=== PATIENT | female | born 1945 | race Caucasian/White ===

== ENCOUNTER 2019-08-04 14:44 | Outpatient (CLI) | payer MEDICARE, BC, SELFPAY ==
--- NOTE | ~2019-08-04 | CT_ITS ---
EXAMINATION:CT lung screening DATE: 08/04/2019 15:28 INDICATION: Personal history of tobacco dependence. Current smoker with 50 pack year history. TECHNIQUE: Computed tomography (CT) of the chest was performed without intravenous contrast. Automate d exposure control and iterative reconstruction technique were employed. The dose-length product (DLP ) was 61.27 mGy-cm. COMPARISON: CT abdomen and pelvis 09/02/2009 FINDINGS: There is mild scarring at the lung apices. There is mild atelectasis bilaterally. Calcified bilateral lung nodules and calcified left hilar and mediastinal lymph nodes are consistent with old granulomatous disease. There are a few scattered nodules measuring up to 3 mm in left upper lobe. No pleural effusion. The heart size is normal. There are coronary artery calcifications. No pericardial effusion. There is mild thoracic spondylosis. IMPRESSION: 1. Lung-RADS category 2: Benign appearance or behavior. Continue annual screening with noncontrast lo w-dose chest CT in 12 months. Reviewed, dictated and finalized at location A. IMPRESSION: 1. Lung-RADS category 2: Benign appearance or behavior. Continue annual screeni ng with noncontrast low-dose chest CT in 12 months.
--- NOTE | ~2019-08-04 | MM_ITS ---
EXAMINATION: MM screening rosa BI w viola HISTORY: Screening mammogram TECHNIQUE: Craniocaudal and mediolateral oblique 3-D tomosynthesis images were obtained and synthetic 2-D images were generated. CAD analysis was submitted and interpreted. COMPARISON: 02/08/2011, 01/06/2010 bilateral digital screening mammogram examinations BREAST PARENCHYMAL COMPOSITION: There are scattered areas of fibroglandular density. FINDINGS: There is a biopsy marker on the right; history of prior benign right stereotactic breast bi opsy. Limited bilateral benign breast calcification. There is no evidence of suspicious mass, calcifi cation, or architectural distortion to suggest malignancy in either breast. There has been no suspici ous interval change. IMPRESSION: 1. No mammographic evidence of malignancy. 2. Recommend routine screening mammography in one year. BI-RADS Category 2: Benign finding(s). Reviewed, dictated and finalized at location A.
== END 2019-08-04 14:45 | disposition home or self-care (01) ==
PROVIDERS: PCP Family Medicine; Visit Provider Family Medicine
DX: Z12.31 Encounter for screening mammogram for malignant neoplasm of breast (principal); Z12.2 Encounter for screening for malignant neoplasm of respiratory organs; Z87.891 Personal history of nicotine dependence
CPT/HCPCS: 77063; 77067; G0297

== ENCOUNTER 2020-08-17 18:20 | Inpatient (IN) | payer MEDICARE, BC, SELFPAY ==
[2020-08-17] VITALS (7 sets, daily range): BP systolic 129–194; BP diastolic 57–79; PULSE 61–103; RESP 11–16; O2SAT 94–97
--- NOTE | ~2020-08-17 | CT_ITS ---
EXAMINATION: CTA brain carotid EXAM DATE: 08/17/2020 21:01 INDICATION: Stroke. TECHNIQUE: Spiral CTA of the carotid arteries was performed with intravenous injection 100 cc of Om nipaque 350. Axial, coronal, sagittal reformatted images reviewed. Additional reformatted images cre ated on dedicated 3-D workstation. NASCET comparable standard used to assess the degree of arterial stenosis. Spiral CT angiogram cerebral arteries performed with the same intravenous injection of con trast. Source images of the brain CTA transferred to dedicated workstation for 3-D rotational image c reation. Coronal, sagittal maximum intensity pixel images also reviewed. The dose-length product (D LP) for this examination was 811.76 mGy-cm. The exposure was tailored according to patient size, an d iterative reconstruction (ASIR) was used as additional dose reduction technique. Correlation is mad e to noncontrast head CT 08/17/2020. FINDINGS: There are 2 tandem regions of moderate stenosis of the left subclavian artery, the one at t he origin 55% stenosis, and the stenosis proximal to vertebral artery takeoff 60% stenosis. There is mild bilateral carotid bulb plaque with 0% stenosis bilaterally. The right vertebral artery is domina nt with moderate to severe stenosis at the origin. Scattered left vertebral artery arterial sclerosis with left vertebral artery origin occlusion. Mild carotid siphon arterial sclerosis without stenosis . There are bilateral posterior communicating artery dominant posterior cerebral arteries. There is no carotid or vertebral basilar arterial dissection or fibromuscular dysplasia. There are no cerebral artery aneurysms. There is symmetric cerebral artery arborization. The sagittal, transverse and sigm oid sinuses enhance normally, no venous sinus thrombosis. Internal cerebral veins also enhance normal ly. Small to moderate-sized left cerebellar infarction, a portion of the anterior superior cerebellar art efrain distribution. Incidental Findings: Mild microangiopathy. Moderate to severe cervical spondylosis. IMPRESSION: 1. Acute small to moderate-sized left cerebellar infarction. 2. Bilateral carotid bulb 0% stenosis. 3. Tandem left subclavian artery moderate stenoses between origin and vertebral. 4. Scattered arteriosclerosis as above. Reviewed, dictated and finalized at location B. IMPRESSION: 1. Acute small to moderate-sized left cerebellar infarction. 2. Bilateral carotid bulb 0% stenosis. 3. Tandem left subclavian artery moderate stenoses between origin and vertebra l. 4. Scattered arteriosclerosis as above.
--- NOTE | ~2020-08-17 | CT_ITS ---
EXAMINATION: CT brain wo con DATE: 08/17/2020 18:39 INDICATION: Left sided numbness. Headache. TECHNIQUE: Computed tomography (CT) of the head was performed without intravenous contrast. The mA wa s adjusted according to patient size. Iterative reconstruction technique was employed. Exam dose: 60 5.33 mGy-cm total exam DLP. COMPARISON: April 16, 2009 MRI brain FINDINGS: There is interval diminished attenuation along the anterosuperior aspect of the left cerebe llum consistent with recent or subacute infarct. Chronic left basal ganglia lacunar infarct. There is patchy nonspecific diminished attenuation of the subcortical and periventricular cerebral wh ite matter, likely due to chronic small vessel ischemic changes. Bilateral carotid siphon internal carotid artery calcifications are noted. Minimal bilateral basal ganglia calcifications. No intracranial mass lesion or hemorrhage, midline shift or mass effect effect is noted. No subdural or epidural hematoma. The mastoid air cells and included paranasal sinuses are normally developed and aerated. No fracture or bone destruction of the cranial vault. IMPRESSION: Recent or subacute anterosuperior left cerebellar infarct No intracranial hemorrhage Dr. Gipson telephoned the report on 08/17/2020 at 1846 hours to emergency room physician Dr. Reyes Reviewed, dictated and finalized at Location A. Reviewed, dictated and finalized at location A. IMPRESSION: Recent or subacute anterosuperior left cerebellar infarct No intracranial hemorrhage Dr. Gipson telephoned the report on 08/17/2020 at 1846 hours to emergency room marj Reyes
--- NOTE | ~2020-08-17 | XR_ITS ---
XR chest 1V DATE: 08/17/2020 18:42 INDICATION: Left-sided numbness. Weakness. TECHNIQUE: AP chest COMPARISON: 03/22/2011 two-view chest 08/04/2019 CT lung screening FINDINGS: Mild discoid atelectasis or scarring in the left lower lobe and to a lesser extent right shantel ng base. Moderate hyperinflation of the lungs. No pulmonary consolidation is noted. No pleural effusion or pul monary vascular congestion or pneumothorax. Borderline heart size. Aortic calcification. Diffuse osteopenia. IMPRESSION: Discoid atelectasis or scarring in the lower lung zones, left greater than right Moderate bilateral hyperinflation Borderline heart size Aortic calcification Diffuse osteopenia Reviewed, dictated and finalized at location A. IMPRESSION: Discoid atelectasis or scarring in the lower lung zones, left great er than right Moderate bilateral hyperinflation Borderline heart size Aortic calcification Diffuse osteopenia
--- NOTE | ~2020-08-17 | CT_ITS ---
EXAMINATION: CT brain wo con EXAM DATE: 08/19/2020 14:27 INDICATION: Recent stroke, follow-up. TECHNIQUE: Spiral CT of the head was performed without contrast. Axial, coronal and sagittal images were reviewed. The dose-length product (DLP) for this examination was 605.33 mGy-cm. The exposure w as tailored according to patient size, and iterative reconstruction (ASIR) was used as additional dos e reduction technique. Correlation is made to brain MR from 08/18/2020. Compared to head CT from 2015 FINDINGS: Small amount of heterogeneous density in region of previously seen small to moderate-sized left cerebellar acute infarction, corresponding to the hemosiderin deposit/petechial hemorrhagic conv ersion described stable correlating to yesterday's MRI brain (finding is new compared to initial pres enting head CT). There is no masslike appearance from focal hematoma or associated vasogenic edema. N o other regions of acute infarction. Moderate microangiopathy in mild cerebral atrophy. Left choroida l fissure cyst. No extra-axial collections, brain mass or obstructive hydrocephalus. IMPRESSION: 1. Left cerebellar acute infarction with petechial hemorrhagic conversion, stable compared to yester day. No kary masslike hematoma. 2. Senescent changes. Reviewed, dictated and finalized at location B. IMPRESSION: 1. Left cerebellar acute infarction with petechial hemorrhagic conversion, sta ble compared to yesterday. No kary masslike hematoma. 2. Senescent changes.
--- NOTE | ~2020-08-17 | MR_ITS ---
EXAMINATION: MR brain/brain stem wo/w con EXAM DATE: 08/18/2020 15:49 INDICATION: Left cerebellar acute infarction. Postoperative tachycardia, hypotension. TECHNIQUE: Magnetic resonance imaging (MRI) of the brain/brain stem obtained without contrast. Sagit maris T1, axial diffusion, gradient echo (T2*), T1, T2, FLAIR sequences obtained. Patient was then inj ected with 9 cc intravenous Multihance contrast. Axial and coronal postcontrast T1 weighted sequences obtained. Comparison is made to prior examination from CTA 08/17/2020. FINDINGS: There is small to moderate-sized left cerebellar infarction, with heterogeneous signal inte nsity on the diffusion-weighted sequence within central portion, with mild drop on the gradient echo sequence, indicative of hemosiderin deposit, hemorrhagic conversion without masslike focal hematoma. Patient may be at risk for developing a focal hematoma in this region. Only minimal mass effect on th e 4th ventricle. No other regions of acute infarction. No brain mass, extra-axial collections or obstructive hydroceph alus. There is moderate microangiopathy in mild cerebral atrophy. 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 Bilateral cataract surgery. IMPRESSION: Small to moderate-sized acute left cerebellar infarction with some early petechial hemosi johana deposit, hemorrhagic conversion, without kary hematoma. I discussed this finding with Dr. Ortiz at 08/18/2020 16:33 CDT. Reviewed, dictated and finalized at location B. IMPRESSION: Small to moderate-sized acute left cerebellar infarction with some early petechial hemosiderin deposit, hemorrhagic conversion, without kary rohit nikky. I discussed this finding with Dr. Ortiz at 08/18/2020 16:33 CDT.
--- NOTE | 2020-08-17 18:25 | ECG_ITS ---
Measurements Intervals Rogers Rate: 69 P: 56 WV: 195 QRS: 16 QRSD: 162 T: 150 QT: 465 QTc: 499 Interpretive Statements SINUS RHYTHM LEFT BUNDLE BRANCH BLOCK ABNORMAL ECG Electronically Signed On 08-17-2020 19:40:41 CDT by Trev Quiroz D.O.
[2020-08-17 18:52] LABS: Glucose Point of Care 142 mg/dl (65-105)
[2020-08-17 19:02] LABS: Basophils Percent Auto 0.2 % (0.2-1.2); Hematocrit 43.1 % (37.0-47.0); Hemoglobin 14.7 g/dL (12.0-15.0); Immature Granulocyte Absolute 0.02 K/mm3 (0.00-0.031); Immature Granulocyte Percent A 0.3 % (0-0.5); Lymphocytes Absolute Auto 1.07 K/mm3 (0.9-3.2); Lymphocytes Percent Auto 16.3 % (18.3-44.2); Mean Corpuscular HGB Conc 34.1 g/dl (32-36); Mean Corpuscular Hemoglobin 31.4 pg (26-34); Mean Corpuscular Volume 92.1 fl (80-100); Mean Platelet Volume 9.6 fl (7.4-10.4); Monocytes Absolute Auto 0.2 K/mm3 (0.1-0.6); Monocytes Percent Auto 3.1 % (2.6-8.5); Neutrophils Absolute Auto 5.3 K/mm3 (1.3-6.7); Neutrophils Percent Auto 80.1 % (45.5-73.1); Platelet Count Result 234 k/mm3 (150-375); Red Blood Count 4.68 M/mm3 (4.2-5.4); Red Cell Distribution Width 12.3 % (11.5-14.5); White Blood Count 6.6 K/mm3 (4.5-10.0)
[2020-08-17] MEDS: MORPHINE SULFATE (*CRX) 4 MG/ML INJ IV PUSH (19:08)
[2020-08-17] MEDS: SODIUM CHLORIDE 0.9% IV 1,000 ML 125 ML IV CONT (19:08)
[2020-08-17 19:13] LABS: Anion Gap 9 mmol/L (8-16); Blood Urea Nitrogen 11 mg/dL (7-17); Calcium 9.8 mg/dL (8.4-10.2); Carbon Dioxide 27 mmol/L (22-30); Chloride 99 mmol/L (98-107); Estimated CRCL calculation 36 ml/min; Estimated Glomerular Filt Rate > 60; Glucose 135 mg/dL (65-105); INR 1.1; Partial Thromboplastin Time 26.9 SECONDS (22.3-36.8); Potassium 3.6 mmol/L (3.4-5.0); Prothrombin Time 14.3 Seconds (11.1-14.7); Sodium 135 mmol/L (137-145)
[2020-08-17 19:24] LABS: Troponin I < 0.012 ng/mL (0.000-0.034)
--- NOTE | 2020-08-17 19:51 | ED.NEUROSD ---
HPI - Neuro Symptoms/Deficit General Chief Complaint: Suspected CVA Stated Complaint: left side numbness 8 hours ago Time Seen by Provider: 08/17/20 18:41 Source: patient Mode of arrival: ambulatory Limitations: no limitations History of Present Illness HPI Narrative: 74-year-old with a history of hypertension, anxiety depression here with complaints of headache since this morning. Patient states that about 10:00 right side of her body was shaking violently which subsided on its own and then few hours later was on the left side. She thought it would go away however with her family's request she was brought to the ER. She presently states that she is weak on the left side. She denied any chest pain or shortness of breath. Onset (ago): hour(s) (7) Location: left leg History of same: Yes Severity: mild Quality: weak Relieving factors: none Exacerbating factors: none Context: gradual onset On Anticoagulants: No Associated symptoms: headaches Related Data Home Medications Medication Instructions Recorded Confirmed albuterol sulfate [ProAir HFA] INHALATION 08/17/20 amlodipine 08/17/20 budesonide-formoterol [Symbicort] INHALATION 08/17/20 bupropion HCl mg PO 08/17/20 carvedilol 08/17/20 clonidine HCl 08/17/20 lisinopril 08/17/20 sertraline mg 08/17/20 Allergies Allergy/AdvReac Type Severity Reaction Status Date / Time Sulfa (Sulfonamide AdvReac Unknown SEVERE N/V Verified 08/17/20 20:17 Antibiotics) Review of Systems Review of Systems: All systems reviewed & are unremarkable except as noted in HPI and below Constitutional: Constitutional: Reports no additional constitutional complaints Eyes: Eyes: Reports no additional eye complaints ENT: Reports system reviewed and no additional complaints, except as documented Cardiovascular: Cardiovascular: Reports no additional cardiovascular complaints Respiratory: Respiratory: Reports no additional respiratory complaints Gastrointestinal: Gastrointestinal: Reports no additional gastrointestinal complaints Musculoskeletal: Musculoskeletal: Reports no additional musculoskeletal complaints Neurologic: Reports as per HPI Psychiatric: Psychiatric: Reports no additional psychiatric complaints Exam Narrative: Exam Narrative: GENERAL: Well-appearing, well-nourished, and in no acute distress. HEAD: Normocephalic, atraumatic. EYES: PERRLA and EOMI. ENT: Nares clear, no rhinorrhea or epistaxis. Mucous membranes moist. No facial droop NECK: Supple. CHEST: Clear to auscultation. No respiratory distress. HEART: Regular rate and rhythm. No murmur heard. Normal peripheral pulses. ABDOMEN: Soft, nontender, nondistended, normal active bowel sounds. EXTREMITIES: Normal range of motion. No edema. SKIN: Warm, dry, no rash. NEURO: No focal deficits. Alert and oriented x3. PSYCH: Normal mood and affect. Course Course Emergency Course: Patient comfortably lying on the stretcher in no discomfort informed her about her lab work, CT findings will admit to the hospital for further stroke work-up. Discussed with Dr. Amaya will consult the patient. Vital Signs Vital signs: Vital Signs Pulse Rate 70 08/17/20 18:42 Respiratory Rate 16 08/17/20 18:42 Blood Pressure 163/79 H 08/17/20 18:42 Pulse Oximetry 97 08/17/20 18:42 Pulse Rate 72 08/17/20 20:07 Respiratory Rate 14 08/17/20 20:07 Blood Pressure 177/73 H 08/17/20 20:07 Pulse Oximetry 97 08/17/20 20:07 MDM - Neuro Symptoms/Deficit Lab Data Result diagrams: 08/17/20 18:54 08/17/20 18:54 Labs: Lab Results 08/17/20 08/17/20 08/17/20 Range/Units 18:50 18:54 18:54 WBC 6.6 (4.5-10.0) K/mm3 RBC 4.68 (4.2-5.4) M/mm3 Hgb 14.7 (12.0-15.0) g/dL Hct 43.1 (37.0-47.0) % MCV 92.1 (80-100) fl MCH 31.4 (26-34) pg MCHC 34.1 (32-36) g/dl RDW 12.3 (11.5-14.5) % Plt Count 234 (150-375) k/mm3 MPV 9.6 (7.4-10.4) fl
--- NOTE | 2020-08-17 20:14 | PC.NURSE ---
Fluids Bolused in. Ok per Dr Ballard
[2020-08-17] MEDS: ASPIRIN 81 MG CHEWABLE TABLET 324 MG PO (20:24)
[2020-08-17] MEDS: LABETALOL HCL INJ 100 MG/20 ML VIAL 10 MG IV PUSH (20:25)
--- NOTE | 2020-08-17 21:35 | ADMGEN ---
This patient, Margy Marin, was admitted to Medical Room 349-01. Patient/family oriented to hospital policies and general routines including ID bracelet, bed and alarms, visiting hours, pain management, procedures, bathroom and other care routines, personal items, smoking policy, room service/diet, and visiting hours. Information on how to activate the Rapid Response Team has been discussed. Patient/Family are encouraged to report perceived risks to care and to ask questions if they do not understand what they are told or what they should do.
[2020-08-18] VITALS (13 sets, daily range): BP systolic 126–190; BP diastolic 68–90; PULSE 44–61; RESP 16–18; TEMP 35.9–36.6; O2SAT 96–100; BMI 19.3
--- NOTE | 2020-08-18 | ECHO_ITS ---
Patient Info Name: Margy Marin Age: 74 years : 1945 Gender: Female Ht: 61 in Wt: 100 lbs BSA: 1.39 m2 HR: 57 bpm BP: 154 / 76 mmHg Heart Rhythm: Sinus Rhythm Technical Quality: Good Exam Date: 08/18/2020 2:09 PM Exam Location: [facility] Patient Status: Inpatient Admit Date: 08/17/2020 Staff Ordering Physician: Richard Reyes MD Boat Driver: Chris Talavera RDCS, RT Attending Provider: Mary Edgar DO Exam Type: CA echo doppler w bubble study Study Info Indications I63.239 - Cerebral infarction due to unspecified occlusion or stenosis of unspecified carotid arteries Complete two-dimensional, color flow and Doppler transthoracic echocardiogram is performed. Strain analysis performed. Summary 1. Complete two-dimensional, color flow and Doppler transthoracic echocardiogram is performed. 2. Normal left ventricular size with moderate concentric hypertrophy. Left ventricular systolic function with the ejection fraction is 65-70%. No focal wall motion abnormalities. Global longitudinal strain was normal at-18%. Diastolic dysfunction grade 1 was present. 3. There is mild tricuspid valve regurgitation. 4. Mild pulmonary hypertension, estimated pulmonary arterial systolic pressure is 41 mmHg. 5. No evidence of intracardiac shunting by color flow and by bubble study during normal respiration and Valsalva maneuver. 6. Normal sinus rhythm. Left Ventricle Left ventricular chamber dimension is normal. Left ventricular systolic function is normal, estimated at 65-70%. There is moderately increased left ventricular wall thickness. Left ventricular septal wall motion is abnormal with septal motion related to bundle branch block. The left ventricular diastolic function is grade I diastolic dysfunction. Global longitudinal strain is normal at -18 %. Right Ventricle Right ventricular chamber dimension is normal. Right ventricular systolic function is normal. Left Atria Left atrial chamber dimension is normal. Right Atria Right atrial chamber dimension is normal. Atrial Septum Intact interatrial septum visualized by color flow, Doppler and agitated saline imaging. Aortic Valve The aortic valve is trileaflet. There is no aortic valve sclerosis. There is no aortic valve stenosis. There is no aortic valve regurgitation. Pulmonic Valve The pulmonic valve is normal. There is no pulmonic valve stenosis. There is no pulmonic regurgitation. Mitral Valve The mitral valve has normal leaflets. There is no mitral valve stenosis. There is trace mitral valve regurgitation. Tricuspid Valve The tricuspid valve leaflets are normal. There is no significant tricuspid valve stenosis. There is mild tricuspid valve regurgitation. Mild pulmonary hypertension, estimated pulmonary arterial systolic pressure is 41 mmHg. Pericardium/Pleural The pericardium appears normal. There is no pericardial effusion. Inferior Vena Cava Normal inferior vena cava with >50% collapse upon inspiration consistent with Empty right atrial pressure, 10 mmHg. Aorta The aortic root size at the sinus of Valsalva is normal. The prox ascending aorta size is normal. Left Ventricular Outflow Tract Name Value Normal LVOT 2D
[2020-08-18 00:01] LABS: Troponin I < 0.012 ng/mL (0.000-0.034)
[2020-08-18] MEDS: ACETAMINOPHEN 325 MG TABLET 650 MG PO ×2 (02:17→06:19)
[2020-08-18 03:07] LABS: Troponin I 0.014 ng/mL (0.000-0.034)
[2020-08-18] MEDS: SERTRALINE HCL 50 MG TABLET 100 MG PO ×2 (09:09→20:08)
[2020-08-18] MEDS: buPROPion HCL XL (24 HR) 150 MG TABCR PO (09:09)
[2020-08-18] MEDS: ASPIRIN 325 MG TABLET PO (09:09)
[2020-08-18] MEDS: amLODIPine BESYLATE 5 MG TABLET PO (09:10)
[2020-08-18] MEDS: lisinopriL 20 MG TABLET 40 MG PO (09:10)
[2020-08-18] MEDS: ATORVASTATIN 10 MG TABLET PO (09:10)
[2020-08-18] MEDS: carvediloL 6.25 MG TABLET PO ×2 (09:10→17:13)
--- NOTE | 2020-08-18 10:50 | WPDNEURCNPN ---
Assessment and Plan Assessment and plan (1) Acute CVA (cerebrovascular accident): Code(s): I63.9 - Cerebral infarction, unspecified Status: Acute (2) Anxiety: Code(s): F41.9 - Anxiety disorder, unspecified Status: Acute (3) HTN (hypertension), benign: Code(s): I10 - Essential (primary) hypertension Status: Acute Additional Plan Left cerebellar stroke documented by the CTA in addition to the left subclavian artery moderate stenosis between origin and the vertebral artery raising the possibility of subclavian steal will discuss with the patient further Consult date: 08/18/20 Time Seen: 10:30 HPI: Margy Marin is a 74 year old female[facility] for complaints of left-sided numbness of 8 hours duration in addition to the ongoing history of 1. Hypertension 2. Anxiety with depression 3. Headaches. She reported that at about 10:00 a.m. the right side of her body was shaking violently and then subsided on its own and then few hours later it was happening on the left side. As per the family request she came to the hospital initial evaluation in the emergency room revealed her to have mildly abnormal UA otherwise normal chemistry and CBC CTA documented acute small moderate size left cerebellar infarct in addition to bilateral carotid bulbs 0% stenosis and tandem left subclavian artery moderate stenosis between origin and vertebral CT of the lungs revealed her to have benign appearance so as the mammogram screening Review of Systems Review of Systems: All systems reviewed & are unremarkable except as noted in HPI and below PMFSH Family History Family History Father Acute myocardial infarction Hypertension Congestive heart failure Sibling Acute myocardial infarction Congestive heart failure Mother Stomach cancer Unknown Diabetes mellitus Social History Social History Years smoked: 30 Smoking status: Current every day smoker Tobacco type: cigarettes Second hand tobacco smoke exposure: Yes Alcohol intake: never Substance use: current Substance use type: marijuana Last use: couple weeks ago Gender identity (if verbalized by the patient): Female Spiritual care concerns: No Meds Home Medications and Allergies Home Medications Medication Instructions Recorded Confirmed Type amlodipine 5 mg PO DAILY 08/17/20 08/17/20 History atorvastatin 10 mg PO DAILY 08/17/20 08/17/20 History budesonide-formoterol [Symbicort] 2 puff INHALATION QID PRN 08/17/20 08/17/20 History bupropion HCl 150 mg PO DAILY 08/17/20 08/17/20 History carvedilol 6.25 mg PO BID 08/17/20 08/17/20 History clonidine HCl 0.2 mg PO HS 08/17/20 08/17/20 History lisinopril 40 mg PO DAILY 08/17/20 08/17/20 History oxybutynin chloride 5 mg PO DAILY 08/17/20 08/17/20 History sertraline 100 mg PO BID 08/17/20 08/17/20 History Allergies Allergy/AdvReac Type Severity Reaction Status Date / Time Sulfa (Sulfonamide AdvReac Unknown SEVERE N/V Verified 08/17/20 21:49 Antibiotics) Vital Signs Vital Signs - 24 hr 08/17/20 18:42 08/17/20 19:09 08/17/20 20:07 Temperature Pulse Rate 63 66 72 Respiratory Rate 12 11 L 14 Blood Pressure 163/79 H 141/75 H 177/73 H Pulse Oximetry 95 94 97 08/17/20 20:16 08/17/20 20:32 08/17/20 21:32 Temperature Pulse Rate 103 H 61 Respiratory Rate 15 14 Blood Pressure 194/74 H 168/71 H 129/57 L Pulse Oximetry 94 94 08/17/20 22:35 08/18/20 00:00 08/18/20 04:00 Temperature 36.6 C Pulse Rate 60 44 L Respiratory Rate 16 Blood Pressure 126/68 Pulse Oximetry 95 100 08/18/20 06:33 08/18/20 08:00 08/18/20 09:10 Temperature 36.2 C L Pulse Rate 53 L 57 L 59 L Respiratory Rate 18 Blood Pressure 154/76 H Pulse Oximetry 100 08/18/20 09:23 Temperature 35.9 C L Pulse Rate 51 L R
--- NOTE | 2020-08-18 15:11 | PC.NURSE ---
On 08/18/20, the student, [Livan Covington], provided care and completed [facility] documentation on this patient. I have reviewed the student's documentation and agree with the findings.
--- NOTE | 2020-08-18 15:16 | PC.NURSE ---
On 08/18/20, the student, [Livan Covington], provided care and completed [facility] documentation on this patient. I have reviewed the student's documentation and agree with the findings.
--- NOTE | 2020-08-18 15:20 | PC.NURSE ---
Patient taken by wheelchair to MRI.
--- NOTE | 2020-08-18 15:53 | PC.NURSE ---
Patient back from MRI, resting in bed. Call light is within reach.
--- NOTE | 2020-08-18 17:02 | PM.IMPN ---
Progress Note: A&P Assessment and Plan (1) Acute CVA (cerebrovascular accident): Code(s): I63.9 - Cerebral infarction, unspecified Status: Acute Assessment and Plan: MRI is ABNL -Small to moderate-sized acute left cerebellar infarction with some early petechial hemosiderin deposit, hemorrhagic conversion, without kary hematoma. Neurology consulted and has seen patient earlier ECHO awaiting Stop ASA and any blood thinners (2) Anxiety: Code(s): F41.9 - Anxiety disorder, unspecified Status: Chronic Assessment and Plan: Continue anxiety medications (3) HTN (hypertension), benign: Code(s): I10 - Essential (primary) hypertension Status: Chronic Assessment and Plan: Continue BP medications Subjective Date/time seen: 08/18/20 17:02 Interval history: 74 [facility] complaints of left-sided numbness of [address] head shows - Recent or subacute anterosuperior left cerebellar infarct. No intracranial hemorrhage. cta shows - Acute small to moderate-sized left cerebellar infarction. mri head just reported patient informed of petechial hemosiderin deposit. Review of Systems Review of Systems: All systems reviewed & are unremarkable except as noted in HPI and below Exam Const: General: cooperative and healthy appearing; No in distress Nutritional Appearance: overweight Orientation/consciousness: oriented to person HENMT: Head: normal to inspection Resp: Effort & Inspection: no respiratory distress Auscultation: no rhonchi and no wheezes Cardio: Rate: regular rate Rhythm: regular rhythm GI: Inspection: normal to inspection GI Palp: No abdominal tenderness, No Guarding due to palpation present (GI) and No Hepatomegaly present Auscultation: normal bowel sounds Neuro: General: oriented to person Objective Data Vital Signs Vital Signs: Vital Signs - 24 hr 08/17/20 18:42 08/17/20 19:09 08/17/20 20:07 Temperature Pulse Rate 63 66 72 Respiratory Rate 12 11 L 14 Blood Pressure 163/79 H 141/75 H 177/73 H Pulse Oximetry 95 94 97 08/17/20 20:16 08/17/20 20:32 08/17/20 21:32 Temperature Pulse Rate 103 H 61 Respiratory Rate 15 14 Blood Pressure 194/74 H 168/71 H 129/57 L Pulse Oximetry 94 94 08/17/20 22:35 08/18/20 00:00 08/18/20 04:00 Temperature 36.6 C Pulse Rate 60 44 L Respiratory Rate 16 Blood Pressure 126/68 Pulse Oximetry 95 100 08/18/20 06:33 08/18/20 08:00 08/18/20 09:10 Temperature 36.2 C L Pulse Rate 53 L 57 L 59 L Respiratory Rate 18 Blood Pressure 154/76 H Pulse Oximetry 100 08/18/20 09:23 08/18/20 12:00 08/18/20 13:23 Temperature 35.9 C L 36.1 C L Pulse Rate 51 L 57 L 60 Respiratory Rate 18 18 Blood Pressure 170/75 H 147/80 H Pulse Oximetry 96 96 08/18/20 16:00 Temperature Pulse Rate 61 Respiratory Rate Blood Pressure Pulse Oximetry Intake/Output Intake/Output: Intake & Output 08/15/20 08/16/20 08/17/20 08/18/20 23:59 23:59 23:59 23:59 Intake Total 1240 780 Output Total 1100 Balance 1240 -320 Meds/Results Medications: Active Medications Generic Name Dose Route Start Last Admin Trade Name Freq PRN Reason Stop Dose Admin Acetaminophen 650 mg 08/17/20 20:27 08/18/20 06:19 Acetaminophen 325 Mg Tablet PO 650 mg Q4H PRN Administration Mild Pain (1-3) or Fever Amlodipine Besylate 5 mg 08/18/20 09:00 08/18/20 09:10 Amlodipine Besylate 5 Mg Tablet PO 5 mg DAILY MINA Administration Atorvastatin Calcium 10 mg 08/18/20 09:00 08/18/20 09:10 Atorvastatin 10 Mg Tablet PO 10 mg DAILY MINA Administration Budesonide/Formoterol Fumarate 2 puff 08/18/20 08:00 08/18/20 08:50 Budesonide/Form 160-4.5 Mcg (*Sp) INHALATION 2 puff Q12HRT MINA Administration Bupropion HCl 150 mg 08/18/20 09:00 08/18/20 09:09 Bupropion Hcl Xl (24 Hr) 150 Mg Tabc
--- NOTE | 2020-08-18 17:21 | PC.NURSE ---
Spoke to Dr. Lilly about the mri report, staff to closely monitor the patient. No aspirin or lovenox. Blood pressure 190/87. No new orders.
[2020-08-18] MEDS: cloNIDine HCL 0.2 MG TABLET PO (20:08)
[2020-08-19] VITALS (8 sets, daily range): BP systolic 114–136; BP diastolic 65–72; PULSE 52–62; RESP 16–20; TEMP 35.9–36.1; O2SAT 95–97
[2020-08-19] MEDS: carvediloL 6.25 MG TABLET PO (08:29)
[2020-08-19] MEDS: amLODIPine BESYLATE 5 MG TABLET PO (08:30)
[2020-08-19] MEDS: lisinopriL 20 MG TABLET 40 MG PO (08:30)
[2020-08-19] MEDS: SERTRALINE HCL 50 MG TABLET 100 MG PO (08:30)
[2020-08-19] MEDS: ATORVASTATIN 10 MG TABLET PO (08:30)
[2020-08-19] MEDS: buPROPion HCL XL (24 HR) 150 MG TABCR PO (08:30)
--- NOTE | 2020-08-19 12:02 | WPDNEUROPN ---
Progress Note: A&P Additional Plan left cerebellar stroke with left subclavian artery moderate stenosis between the origin and the vertebral on the left side raising the possibility of vertebral steal because the MRI show some hemorrhagic conversion at this stage she needs no plaque or anticoagulation simply rest [place] of physical therapy in addition to monitoring the blood pressure I will send the report for neurosurgical service at [facility] and arrange for vascular consult all the pros and cons of the diagnosis have been discussed with her Review of Systems Review of Systems: All systems reviewed & are unremarkable except as noted in HPI and below Exam Const: General: cooperative, comfortable, no acute distress, alert and awake Orientation/consciousness: oriented to person, oriented to place and oriented to time HENMT: Head: normal to inspection and normocephalic Ears: hearing grossly normal bilaterally General nose exam: Normal external nose present Face and sinus: normal facial exam Mouth: Yes Normal oral and palatal mucosa present Eyes: General: appearance normal, both eyes and all related structures Visual Ryan: normal visual ryan by confrontation Alignment and Position: alignment normal Periorbital: periorbital findings normal Eyelids: eyelids normal Conjunctivae: conjunctivae normal Sclera: sclerae normal Cornea: corneas normal EOM: EOMs intact bilaterally Neck: Neck: normal visual inspection and full ROM Resp: Effort & Inspection: normal respiratory effort Auscultation: clear to auscultation bilaterally Neuro: General: oriented to person, oriented to place and oriented to time Cranial nerves: Yes CN's II-XII intact bilaterally Cognition (Neuro): normal cognition Gait exam (Neuro): Ataxic gait present Motor exam (neuro): 5/5 motor strength present throughout, Pronator motor function not present, No tremor noted and Normal motor muscle tone present throughout Sensory Exam: normal sensation Deep tendon reflexes (DTR's): Right triceps reflex intensity grade: 1+, Left triceps reflex intensity grade: 1+, Rt Biceps (C5, C6): 1+, Left biceps reflex intensity grade: 1+, Right brachioradialis reflex intensity grade: 1+, Left brachioradialis reflex intensity grade: 1+, Right patellar reflex intensity grade: 1+, Left patellar reflex intensity grade: 1+, Right ankle reflex intensity grade: 1+ and Left ankle reflex intensity grade: 1+ Plantar Reflex Responses: downgoing: right and equivocal: left Extrem: General: normal to inspection Psych: Appearance: grossly normal Mental Status: mental status grossly normal Speech and movement: Normal speech and movement present Affect: normal affect Attitude: cooperative Thought process: Normal thought process present Insight: Good insight present (Psych) Judgement: Good judgement present (Psych) Objective Data Vital Signs Vital Signs: Vital Signs - 24 hr 08/18/20 13:23 08/18/20 16:00 08/18/20 17:13 Temperature 36.1 C L Pulse Rate 60 61 60 Respiratory Rate 18 Blood Pressure 147/80 H Pulse Oximetry 96 08/18/20 17:16 08/18/20 18:15 08/18/20 20:00 Temperature 36.1 C L 36.2 C L Pulse Rate 61 59 L 58 L Respiratory Rate 18 18 Blood Pressure 190/82 H 176/84 H 181/90 H Pulse Oximetry 100 97 08/19/20 00:00 08/19/20 04:00 08/19/20 06:06 Temperature 36.1 C L Pulse Rate 52 L 56 L 59 L Respiratory Rate 19 Blood Pressure 114/65 Pulse Oximetry 95 08/19/20 08:00 08/19/20 08:29 08/19/20 09:14 Temperature 35.9 C L Pulse Rate 58 L 62 56 L Respiratory Rate 20 Blood Pressure 122/72 Pulse Oximetry 96 Intake/Output Intake/Output: Intake & Output 08/16/20 08/17/20 08/18/20 08/19/20 23:59 23:59 23:59 23:59 Intake Total 1240 1320 500 Output Total 1100 1175 Balance 1240 220 -675 Meds/Results Medications: Active Medications Generic Name Dose Route Start Last Admin Trade Name Freq PRN Reason Stop Dose Admin Acetaminophen 650 mg
--- NOTE | 2020-08-19 14:04 | PM.DS ---
DS: Admitting Diagnosis Admitting Diagnosis Admitting Diagnosis: CVA DS: Discharge Diagnosis Discharge Diagnosis (1) Acute CVA (cerebrovascular accident): Code(s): I63.9 - Cerebral infarction, unspecified Status: Acute Assessment and Plan: MRI is ABNL -Small to moderate-sized acute left cerebellar infarction with some early petechial hemosiderin deposit, hemorrhagic conversion, without kary hematoma. 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 Pt had rpt CT brain prior to discharge which showed - 1. Left cerebellar acute infarction with petechial hemorrhagic conversion, stable compared to yesterday. No kary masslike hematoma. 2. Senescent changes. Pt is stable for discharge pt has mild weakness in left face, arm and leg but is independent with walking and moving. Stop ASA and any blood thinners (2) Anxiety: Code(s): F41.9 - Anxiety disorder, unspecified Status: Chronic Assessment and Plan: Continue anxiety medications (3) HTN (hypertension), benign: Code(s): I10 - Essential (primary) hypertension Status: Chronic Assessment and Plan: Continue BP medications DS: Summary Hospital Course Hospital Course: 74 year [facility] for complaints of left-sided numbness of [address] head shows - Recent or subacute anterosuperior left cerebellar infarct. No intracranial hemorrhage. cta shows - Acute small to moderate-sized left cerebellar infarction. mri head just reported patient informed of petechial hemosiderin deposit. Pt seen by neurology see his note, pt had rpt CT brain which is stable pt is good for discharge with neurology follow up. Time Spent with Patient Time attestation: Total time spent providing and/or coordinating discharge services:40 minutes Exam Const: General: cooperative and healthy appearing; No in distress Nutritional Appearance: overweight Orientation/consciousness: oriented to person HENMT: Head: normal to inspection Resp: Effort & Inspection: no respiratory distress Auscultation: no rhonchi and no wheezes Cardio: Rate: regular rate Rhythm: regular rhythm GI: Inspection: normal to inspection Auscultation: normal bowel sounds Neuro: General: oriented to person and other (mild weakness in left arm and leg and face ) Discharge Plan Discharge Attending physician on discharge: Felicity Ortiz Consulting providers: Jason Amaya Discharging Clinician: Felicity Ortiz Anticipated Discharge Date/Time: 08/19/20 17:00 Patient Disposition: Home, Self-Care Activity: as tolerated Diet: heart healthy Patient Instructions: Antibiotic Form, Aspirin (By mouth), How to Stop Smoking (DC), Pain Management (DC), Weakness (DC), Magnetic Resonance Imaging (DC), Stroke (DC) Stand Alone Forms: General Discharge Information Follow-up/Referrals: Jason Amaya MD [Physician] - (FOLLOW UP IN 1 weeks time ) Discharge Medications: Continued carvedilol 6.25 mg tablet 6.25 mg PO BID RF: 0 sertraline 100 mg tablet 100 mg PO BID RF: 0 amlodipine 5 mg tablet 5 mg PO DAILY RF: 0 clonidine HCl 0.2 mg tablet 0.2 mg PO HS RF: 0 lisinopril 40 mg tablet 40 mg PO DAILY RF: 0 bupropion HCl 150 mg tablet extended release 24 hr 150 mg PO DAILY RF: 0 budesonide-formoterol [Symbicort] 160-4.5 mcg/actuation HFA aerosol inhaler 2 puff INHALATION QID PRN (Reason: Shortness Of Breath Or Wheezing) RF: 0 atorvastatin 10 mg tablet 10 mg PO DAILY RF: 0 oxybutynin chloride 5 mg tablet extended release 24hr 5 mg PO DAILY RF: 0 Date of admission: 08/18/20 16:15 Primary Care Provider: Jed,[facility] Admitting Provider: Valentina
--- NOTE | 2020-08-19 14:34 | PC.NURSE ---
On 08/19/20, the student, [Livan Covington], provided care and completed [facility] documentation on this patient. I have reviewed the student's documentation and agree with the findings.
--- NOTE | 2020-08-19 19:44 | PM.IMHP ---
H&P: HPI History of Present Illness Date/Time: 08/18/20 06:00 late entry Chief Complaint: Headache Narrative: 74-year-old female with past medical history COPD, hypertension, depression and urge incontinence who presented to the ER with headache and left-sided numbness. The patient reported that around 10:00 a.m. the right side of her body started shaking violently and subsided a few minutes later. A few hours after that she developed left-sided numbness. When numbness did not go away her family convinced her to come to the ER. She was feeling weak on the left side when she came to the ER. She reports resolution of her headache prior to arriving in the ER. Her headache was moderate intensity when it occurred. It was in the left occipital region. She did not take any medications for headache. She had not noticed any difficulty swallowing or talking. She denied any dizziness or visual changes. CT performed in the ER demonstrated left acute cerebellar infarction. CT of the head and neck demonstrated small amount of moderate-sized left cerebellar infarction, tandem left subclavian artery moderate stenosis between the origin and vertebral. Review of Systems Review of Systems: Narrative: 12 systems were reviewed with pertinent positives and negatives per HPI. Except as documented in the HPI, all other systems were reviewed and are negative. [facility] Past Medical History Medical History (Updated 08/19/20 @ 20:19 by Mary Edgar DO) Anxiety and depression Carotid stenosis CHF (congestive heart failure) COPD (chronic obstructive pulmonary disease) Coronary artery disease Essential hypertension Gastric ulcer Hyperlipidemia Macular degeneration of left eye Migraines Urge urinary incontinence Surgical History Surgical History (Updated 08/19/20 @ 20:19 by Mary Edgar DO) H/O hysterectomy for benign disease History of bowel resection Due to small-bowel obstruction History of carotid endarterectomy Status post cataract extraction of both eyes with insertion of intraocular lens Status post right rotator cuff repair Family History Family History Father Acute myocardial infarction Hypertension Congestive heart failure Sibling Acute myocardial infarction Congestive heart failure Mother Stomach cancer Unknown Diabetes mellitus Social History Social History Years smoked: 30 Smoking status: Current every day smoker Tobacco type: cigarettes Second hand tobacco smoke exposure: Yes Alcohol intake: never Substance use: current Substance use type: marijuana Last use: couple weeks ago Gender identity (if verbalized by the patient): Female Spiritual care concerns: No Meds Home Medications and Allergies Home Medications Medication Instructions Recorded Confirmed Type amlodipine 5 mg PO DAILY 08/17/20 08/17/20 History atorvastatin 10 mg PO DAILY 08/17/20 08/17/20 History budesonide-formoterol [Symbicort] 2 puff INHALATION QID PRN 08/17/20 08/17/20 History bupropion HCl 150 mg PO DAILY 08/17/20 08/17/20 History carvedilol 6.25 mg PO BID 08/17/20 08/17/20 History clonidine HCl 0.2 mg PO HS 08/17/20 08/17/20 History lisinopril 40 mg PO DAILY 08/17/20 08/17/20 History oxybutynin chloride 5 mg PO DAILY 08/17/20 08/17/20 History sertraline 100 mg PO BID 08/17/20 08/17/20 History Allergies Allergy/AdvReac Type Severity Reaction Status Date / Time Sulfa (Sulfonamide AdvReac Unknown SEVERE N/V Verified 08/17/20 21:49 Antibiotics) Vital Signs Vital Signs - 24 hr 08/18/20 20:00 08/19/20 00:00 08/19/20 04:00 Temperature 97.1 F L Pulse Rate 58 L 52 L 56 L Respiratory Rate 18 Blood Pressure 181/90 H Pulse Oximetry 97 08/19/20 06:06 08/19/20 08:00 08/19/20 08:29 Temperature 97 F L Pulse Rate 59 L 58 L 62 Respiratory Rate 19 Blood Pressure 114/65 Pulse
== END 2020-08-19 15:35 | disposition home or self-care (01) | DRG 66 ==
LOC: ANHED 19:09 → ANH3MED 21:00
PROVIDERS: Admitting Provider Internal Medicine; Emergency Provider Family Medicine; PCP Family Medicine; Visit Provider Family Medicine
DX: I63.9 Cerebral infarction, unspecified (principal); E78.5 Hyperlipidemia, unspecified; R29.700 NIHSS score 0; I25.10 Atherosclerotic heart disease of native coronary artery without angina pectoris; I10 Essential (primary) hypertension; F41.8 Other specified anxiety disorders; J44.9 Chronic obstructive pulmonary disease, unspecified; F17.210 Nicotine dependence, cigarettes, uncomplicated; N39.41 Urge incontinence; Z79.899 Other long term (current) drug therapy; Z88.2 Allergy status to sulfonamides; Z98.42 Cataract extraction status, left eye; Z98.41 Cataract extraction status, right eye; Z96.1 Presence of intraocular lens
CPT/HCPCS: 36415; 70450; 70496; 70498; 70553; 71045; 80048; 82948; 84484; 85025; 85610; 85730; 93005; 93306; 94640; 96361; 96374; 96375; 97161; 97165; 99285; A9270; A9577; G0378; J2270; J7030; Q9967

== ENCOUNTER 2022-05-12 07:37 | Outpatient (CLI) | payer MEDICARE, BC, SELFPAY ==
--- NOTE | 2022-05-12 07:47 | ECG_ITS ---
Measurements Intervals [place] Rate: 89 P: 56 [place]: 179 QRS: 0 QRSD: 136 T: 156 QT: 410 QTc: 501 Interpretive Statements SINUS RHYTHM LEFT BUNDLE BRANCH BLOCK ABNORMAL ECG COMPARED TO ECG 08/17/2020 18:55:56 NO SIGNIFICANT CHANGES Electronically Signed On 05-12-2022 12:28:17 [employer] by Trev Quiroz D.O.
== END 2022-05-12 07:38 | disposition home or self-care (01) ==
PROVIDERS: PCP Nurse Practitioner Family; Visit Provider Nurse Practitioner Family
DX: R00.1 Bradycardia, unspecified (principal); I44.7 Left bundle-branch block, unspecified
CPT/HCPCS: 93005

== ENCOUNTER 2024-12-20 13:30 | Inpatient (IN) | payer MEDICARE, BC, SELFPAY ==
--- OUTSIDE RECORDS SUMMARY | 2009-10-14 05:45 | XMS_ITS | Continuity of Care Document ---
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 No Information 0 Feliceishnasjodee Jose. [address] [address], [place], [place], [facility], [place]. tel:[phone] Office/outpat ient Visit, [facility] [[email or web address]], [address] [place] [address] [address], [place], [place], [id number], tel:[phone] [place] [facility] No Information 0 Krishnasamy Jose. [address] [address], [place], [address], [place]. tel:[phone] Family History Family Member Type Diagnosis Age At Onset No Information Payers Payer name Insurance type Covered republican ID Authoriza tion(s) [place] [id number] Social History Type Description Quantity Date Captured Comments Sex Female Smoking Status No Information Chief Complaint And Reason For Visit No Information Reason For Referral Reason For Referral No Information History Of Present Illness Encounter Date Complaint History Of Prese nt Illness No Information Functional Status Date Functional Assessmen t No Information Instructions Date Instruction Additional Infor mation No Information Assessments Type Assessment Date No Information Patient Care Teams Name Effective Dates (start - stop) Status Members No Information
--- OUTSIDE RECORDS SUMMARY | 2015-08-19 04:30 | XMS_ITS | Continuity of Care Document ---
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 Name Role Phone Mitchell Starks MD, MD Unavailable Unavailable Procedures Procedure Date [facility] AFTER CATARACT LASER SURGERY AFTER CATARACT LASER SURGERY EYE EXAM, NEW PATIENT DILATED EXAM RIGHT EYE DILATED EXAM LEFT EYE CATARACT SURG W/IOL, 1 STAGE CATARACT SURG W/IOL, 1 STAGE OFFICE/OUTPATIENT VISIT, [facility] OPHTHALMIC BIOMETRY OPHTHALMIC BIOMETRY Advance Directives Directive Yes / No Effective Date File Name No Information Encounters Encounter Description Practice Location Reason(s) For Visit Diagnoses Date Provider Providers Copied on Encounter [facility], [address] [place] [address], [id number], tel:[phone] [facility] No Information 6 Raudel Medrano. [address], [address] [place] [address], [id number], [place]. tel:[phone] Referring Provider: Mitchell Starks MD P, [address], [place], [address]. tel:[phone] [facility], [address] [place] [address], [id number], tel:[phone] [facility] No Information 6 Raudel Medrano. [address], [address] [place] [address], [id number], [place]. tel:[phone] Referring Provider: Mitchell Starks MD P, [address], [place], [address]. tel:[phone] [facility], [address], [place], [place], [id number], tel:[phone] [facility] No Information 6 Raudel Medrano. [address], [address], [place], [place], [id number], [place]. tel:[phone] Referring Provider: Mitchell Starks MD P, [address], [place], [address]. tel:[phone] [facility], [address], [place], [place], [id number], [place] tel:[phone] [facility] No Information 2 Fede Kim. [address], [address], [place], [place], [id number], [place]. tel:[phone] Referring Provider: Julio Soliman, [address] [place] [address] [address], [place], [address]. tel:[phone] [facility], [address], [place], [place], [id number], [place] tel:[phone] [facility] No Information 2 Fede Kim. [address], [address], [place], [place], [id number], [place]. tel:[phone] Referring Provider: Julio Soliman, [address], [place], [address]. tel:[phone] OFFICE/OUTPA TIENT VISIT, [facility], [address], [place], [place], [id number], [place] tel:[phone] [facility] No Information 2 Fede Kim. [address], [address], [place], [place], [id number], . tel:[phone] Referring Provider: Julio Soliman, [address], [place], [address]. tel:[phone] Family History Family Member Type Diagnosis Age At Onset No Information Payers Payer name Insurance type Covered constitution party ID Authorfarzana orozco(s) [facility] [id number] Social History Type Description Quantity Date Captured [...]
[2024-12-20] VITALS (21 sets, daily range): BP systolic 127–188; BP diastolic 68–92; PULSE 60–83; RESP 7–23; TEMP 36.9; O2SAT 92–100; BMI 18.2
--- NOTE | ~2024-12-20 | CT_ITS ---
EXAMINATION: CT brain wo roseann, 12/20/2024 14:20 CDT HISTORY: AMS, head injury COMPARISON: No comparisons available. Technique: Axial images obtained of the brain without contrast. One or more of the following dose reduction techniques were used: automated exposure control, adjustment of the mA and/or kV according to patient size, use of iterative reconstruction technique. 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 Moderate chronic periventricular ischemic changes. No acute infarct or hemorrhage. No midline shift or mass effect. No extra-axial fluid collections. Mastoid air cells unremarkable. Sinuses and orbits unremarkable. No acute fracture. No significant facial or scalp soft tissue swelling evident. No radiopaque foreign body is seen. Impression: 1.No acute intracranial abnormality. Reviewed, dictated and finalized at location P. Impression: 1.No acute intracranial abnormality.
--- NOTE | ~2024-12-20 | XR_ITS ---
EXAMINATION: XR chest 2V, 12/20/2024 14:15 CDT HISTORY: syncope COMPARISON: No comparisons available. Technique: 2 views obtained. Findings: The lungs are clear, no effusion. No pneumothorax. Heart is normal size. Mediastinal and hilar contours are within normal limits. Bony thorax no acute abnormality. Impression: No acute cardiopulmonary abnormality. Reviewed, dictated and finalized at location P. Impression: No acute cardiopulmonary abnormality.
--- NOTE | ~2024-12-20 | CT_ITS ---
EXAMINATION: CT cervical spine wo con COMPARISON: None HISTORY: fall, head injury TECHNIQUE: Axial images were obtained through the spine without IV contrast. Coronal, sagittal reconstruction images were obtained from the axial views. CT scan performed using dose optimization techniques including the following automated exposure control; adjustment of mA and/or kV; use of iterative reconstruction technique. Automatic exposure control was used to reduce radiation dose. Permanent radiation dose record is archived to PACS. FINDINGS: Grade 1 anterolisthesis of C3 on C4 C4 C5, no fracture. Severe loss of disc height C4-5 C5-6 and C6-7 with moderate to severe canal and foraminal stenosis, outpatient MRI is recommended. Soft tissues unremarkable. Impression: No acute abnormality. Reviewed, dictated and finalized at location P. Impression: No acute abnormality.
--- NOTE | ~2024-12-20 | MR_ITS ---
EXAMINATION: MR brain/brain stem wo/w con DATE: 12/22/2024 09:07 INDICATION: Syncope. TECHNIQUE: Magnetic resonance imaging (MRI) of the brain and brainstem was performed without and with 8 mL MultiHance intravenous contrast. COMPARISON: Brain MRI 08/18/2020, head CT 12/20/2024 FINDINGS: There is an old infarct in left cerebellum with old blood products. There is an old infarct in right caudate nucleus. There is an old infarct in the left basal ganglia. There are scattered areas of nonspecific increased T2- weighted signal intensity in the cerebral white matter. There is no acute infarction or abnormal intracranial mass lesion. The ventricles are normal in size. There is mild mucosal thickening in the ethmoid sinuses. There are likely changes of ocular lens replacement surgeries. The mastoid air cells are normal. IMPRESSION: 1. 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 2. Extensive nonspecific cerebral white matter disease, which likely represents chronic small vessel ischemic disease. Reviewed, dictated and finalized at location E.
--- NOTE | ~2024-12-20 | CT_ITS ---
EXAMINATION: CTA brain carotid, 12/20/2024 14:45 CDT HISTORY: dizziness COMPARISON: No comparisons available. TECHNIQUE: CTA scan with 3D Reconstructions of the brain and neck was performed with contrast Isovue 300, 92cc injected IV. One or more of the following dose reduction techniques were used: automated exposure control, adjustment of the mA and/or kV according to patient size, use of iterative reconstruction technique. Unless otherwise stated, incidental findings do not require dedicated follow up imaging FINDINGS: CTA brain: Visualized brain parenchyma and optic globes appear unremarkable. Basilar artery unremarkable. Right posterior cerebral arteries. Predominantly by the [place] and appears unremarkable. The left posterior cerebral arteries. Predominantly by the [place] and appears unremarkable. The right petrous and cavernous ICA segments unremarkable. The right M1 and M2 segments are unremarkable. The right M1 and M2 segment branches are unremarkable. The right A1 and A2 segments are unremarkable. The left petrous and cavernous ICA segments unremarkable. The left M1, M2 segments and their branches are unremarkable. The left A1, A2 segments unremarkable. CTA NECK: The soft tissues appear unremarkable. Lung apices chronic changes. No sclerotic or lytic lesions identified. No significant sinusitis. The cervical segments of the vertebral arteries are unremarkable, the left vertebral artery is diminutive with moderate atherosclerotic changes at its origin. Right CCA unremarkable. Right ICA unremarkable. Left CCA unremarkable. Left ICA unremarkable. IMPRESSION: 1. Motion artifact limits evaluation. No critical stenosis, occlusion or aneurysm is identified. Reviewed, dictated and finalized at location P. IMPRESSION: 1. Motion artifact limits evaluation. No critical stenosis, occlusion or aneury sm is identified.
--- OUTSIDE RECORDS SUMMARY | 2024-12-20 13:33 | XMS_ITS | Patient Health Record ---
Author Organization [facility] As [place] Address [address] [address] Support Name Relationship Address Phone KERLINE GODINEZ Guarantor Unknown [phone] Reason For Referral No Information Plan Of Treatment No Information
--- NOTE | 2024-12-20 13:53 | ECG_ITS ---
Test Date: 2024-12-20 14:00:38 Measurements Intervals [place] Rate: 64 P: 60 MS: 198 QRS: -23 QRSD: 152 T: 137 QT: 467 QTc: 484 Interpretive Statements SINUS RHYTHM LEFT BUNDLE BRANCH BLOCK BASELINE ARTIFACT- I, II, AVR, AVL, V4-V5 ABNORMAL ECG No previous ECG available for comparison Electronically Signed On 12-20-2024 14:09:41 CDT by Trev Quiroz D.O.
[2024-12-20 14:26] LABS: Hematocrit 37.4 % (37.0-47.0); Hemoglobin 12.6 g/dL (12.0-15.0); Immature Granulocyte Percent A 0.2 % (0-0.5); Lymphocytes Absolute Auto 1.50 K/mm3 (0.9-3.2); Mean Corpuscular HGB Conc 33.7 g/dl (32-36); Mean Corpuscular Hemoglobin 31.1 pg (26-34); Mean Corpuscular Volume 92.3 fl (80-100); Nucleated Red Blood Cells Absolute Auto 0.000 K/mm3 (0.0-0.012); Nucleated Red Blood Cells Perc 0.0 % (0.0-0.2); Platelet Count Result 278 k/mm3 (150-375); Red Blood Count 4.05 M/mm3 (4.2-5.4); White Blood Count 8.2 K/mm3 (4.5-10.0)
[2024-12-20 14:38] LABS: Alanine Aminotransferase 18 U/L (6-35); Albumin Level 4.4 g/dL (3.5-5.1); Alkaline Phosphatase 110 U/L (38-126); Anion Gap 10 mmol/L (4-12); Aspartate Amino Transferase 41 U/L (14-36); Bilirubin,Total 0.7 mg/dL (0.2-1.3); Blood Urea Nitrogen 14 mg/dL (7-17); Calcium 9.8 mg/dL (8.4-10.2); Carbon Dioxide 25 mmol/L (22-30); Chloride 99 mmol/L (98-107); Estimated CRCL calculation 24 ml/min; Estimated Glomerular Filt Rate 44; Glucose 99 mg/dL (65-110); Potassium 3.7 mmol/L (3.4-5.0); Sodium 134 mmol/L (137-145); Total Protein 7.7 g/dL (6.3-8.2)
--- NOTE | 2024-12-20 14:45 | ED.SYNCOPE ---
HPI - Syncope General Chief Complaint: Syncope <Ni Hale PA-C - Last Filed: 12/20/24 21:42> Stated Complaint: syncope, struck head <VALERIY Mejias Last Filed: 12/20/24 21:42> Time Seen by Provider: 12/20/24 14:09 <VALERIY Mejias Last Filed: 12/20/24 21:42> Source: patient and family <VALERIY Mejias Last Filed: 12/20/24 21:42> Mode of arrival: wheelchair <VALERIY Mejias Last Filed: 12/20/24 21:42> Limitations: no limitations <VALERIY Mejias Last Filed: 12/20/24 21:42> History of Present Illness HPI narrative: This is a 79-year-old female that presents to the emergency department after a syncopal episode. Reports last night she was feeling dizzy when walking in from outside. She passed out. Reports she did hit her head. Family brought her in today for evaluation as they thought she seemed more confused today than usual. Reports feeling off balance. Denies vomiting, focal numbness, weakness. <VALERIY Mejias Last Filed: 12/20/24 21:42> Related Data Home Medications: Home Medications ?Medication ?Instructions ?Recorded ?Confirmed ?Last Taken ?Type atorvastatin 10 mg tablet 10 mg PO DAILY 08/17/20 12/21/24 12/19/24 21:00 History 10 mg bupropion HCl 150 mg 24 hr tablet, 150 mg PO DAILY 08/17/20 12/21/24 12/20/24 09:00 History extended release 150 mg lisinopril 40 mg tablet 40 mg PO DAILY 08/17/20 12/21/24 12/19/24 21:00 History 40 mg oxybutynin chloride 5 mg 5 mg PO DAILY 08/17/20 12/21/24 12/20/24 09:00 History tablet,extended release 24 hr 5 mg sertraline 100 mg tablet 100 mg PO BID 08/17/20 12/21/24 12/20/24 09:00 History 100 mg donepezil 5 mg tablet 5 mg PO DAILY 12/21/24 12/21/24 Unknown History <Ni Hale PA-C - Last Filed: 12/20/24 21:42> Allergies/Adverse Reactions: Allergies Allergy/AdvReac Type Severity Reaction Status Date / Time Sulfa (Sulfonamide AdvReac Unknown SEVERE N/V Verified 12/20/24 22:26 Antibiotics) <Ni Hale PA-C - Last Filed: 12/20/24 21:42> Review of Systems Review of Systems: All systems reviewed & are unremarkable except as noted in HPI and below <Ni Hale PA-C - Last Filed: 12/20/24 21:42> FOR[facility]LY [facility] Past Medical History Medical History: Medical History (Updated 12/21/24 @ 08:05 by Trev Quiroz DO) Macular degeneration of left eye Gastric ulcer Urge urinary incontinence Carotid stenosis Coronary artery disease Hyperlipidemia CHF (congestive heart failure) Migraines Anxiety and depression COPD (chronic obstructive pulmonary disease) Essential hypertension <Ni Hale PA-C - Last Filed: 12/20/24 21:42> Surgical History Surgical History: Surgical History H/O hysterectomy for benign disease Status post cataract extraction of both eyes with insertion of intraocular lens Status post right rotator cuff repair History of bowel resection Due to small-bowel obstruction History of carotid endarterectomy <Ni Hale PA-C - Last Filed: 12/20/24 21:42> Family History Family History: Family History Father Acute myocardial infarction Hypertension Congestive heart failure Sibling Acute myocardial infarction Congestive heart failure Mother Stomach cancer Unknown Diabetes mellitus <VALERIY Mejias Last Filed: 12/20/24 21:42> Social History Social History: Social History Years smoked: 30 Smoking status: Former smoker Tobacco type: cigarettes Second hand tobacco smoke exposure: Yes Alcohol intake: never Substance use: never Substance use type: marijuana Last use: couple weeks ago Lack of Transportation: No Lack of Food: Never True Current Housing: I Have Housing Concerned About Future Housing: No Difficulty Paying Gas/Electric Bills: YES Difficulty Paying for Meds: No Currently Unemployed: No Education: High School Diploma/GED Difficulty w/ Childcare or Family Care: No Gender identity (if verbalized by the patient): Female Spiritual care concerns: No <Ni Hale PA-C - Last Filed: 12/20/24 21:42> Exam Narrative: GENERAL: Well-appearing, well-nourished, and in no acute distress. HEAD: Normocephalic, atraumatic. EYES: PERRLA and EOMI. ENT: Nares clear, no rhinorrhea or epistaxis. Mucous membranes moist. Oropharynx without tonsillar hypertrophy exudate or other lesions. Bilateral TMs pearly ellis non-bulging NECK: Supple. No adenopathy or masses. CHEST: Clear to auscultation. No respiratory distress. No wheezes rales or rhonchi HEART: Regular rate and rhythm. No murmur heard. Normal peripheral pulses. ABDOMEN: Soft, nontender, nondistended, normal active bowel sounds. EXTREMITIES: Normal range of motion. No edema. Strength equal in bilateral upper and lower extremities (5/5) SKIN: Warm, dry, no rash. NEURO: No focal deficits. Alert and oriented x3. CN II-XII grossly intact. Patient has difficulty with finger-nose bilaterally, but she is not wearing her glasses PSYCH: Normal mood and affect <Ni Hale PA-C - Last Filed: 12/20/24 21:42> Course DIGITAL PHOTO PRINTER/PA Physician Supervision This visit was performed by both a physician and an APC. I performed all aspects of the MDM as documented. <Juancho Marmolejo MD - Last Filed: 12/29/24 07:19> Consultations Consultation #1: spoke with hospitalist about patient and workup who accepts admission <Ni Hale PA-C - Last Filed: 12/20/24 21:42> Date: 12/20/24 <Ni Hale PA-C - Last Filed: 12/20/24 21:42> Vital Signs Vital signs: Vital Signs Temperature 98.4 F 12/20/24 13:40 Pulse Rate 71 12/20/24 13:40 Respiratory Rate 18 12/20/24 13:40 Blood Pressure 158/92 H 12/20/24 13:40 Pulse Oximetry 100 12/20/24 13:40 Temperature 97.6 F 12/22/24 13:59 Pulse Rate 58 L 12/22/24 13:59 Respiratory Rate 15 12/22/24 13:59 Blood Pressure 114/58 L 12/22/24 13:59 Pulse Oximetry 97 12/22/24 13:59 Oxygen Delivery Room Air 12/22/24 10:14 <Ni Hale PA-C - Last Filed: 12/20/24 21:42> Vital Signs Temperature 98.4 F 12/20/24 13:40 Pulse Rate 71 12/20/24 13:40 Respiratory Rate 18 12/20/24 13:40 Blood Pressure 158/92 H 12/20/24 13:40 Pulse Oximetry 100 12/20/24 13:40 Temperature 97.6 F 12/22/24 13:59 Pulse Rate 58 L 12/22/24 13:59 Respiratory Rate 15 12/22/24 13:59 Blood Pressure 114/58 L 12/22/24 13:59 Pulse Oximetry 97 12/22/24 13:59 Oxygen Delivery Room Air 12/22/24 10:14 <Juancho Marmolejo MD - Last Filed: 12/29/24 07:19> MDM - Syncope MDM Narrative Medical decision making narrative: Patient presents to the emergency department for dizziness, syncopal episode last night. She is afebrile and nontoxic appearing. Her vitals are stable. No focal deficits noted on exam. CBC metabolic panel without concerning findings. Urine without evidence of infection. CT brain, cervical spine without acute findings. Chest x-ray without acute cardiopulmonary abnormality. CTA brain and neck without acute findings. Patient will be admitted for further evaluation/management <iN Hale PA-C - Last Filed: 12/20/24 21:42> Patient presents to the emergency department for dizziness, syncopal episode last night. She is afebrile and nontoxic appearing. Her vitals are stable. No focal deficits noted on exam. CBC metabolic panel without concerning findings. Urine without evidence of infection. CT brain, cervical spine without acute findings. Chest x-ray without acute cardiopulmonary abnormality. CTA brain and neck without acute findings. Patient will be admitted for further evaluation/management This visit was performed by both a physician and an APC. I performed all aspects of the MDM as documented. <Juancho Marmolejo MD - Last Filed: 12/29/24 07:19> Differential Diagnosis Differential diagnosis: Likely syncope due to orthostatic hypotension, vasovagal syncope, dehydration and other (CVA, vertigo) <Ni Hale PA-C - Last Filed: 12/20/24 21:42> Lab Data Attestation: I reviewed the patient's lab results. <Ni Hale PA-C - Last Filed: 12/20/24 21:42> Result diagrams: 12/21/24 05:35 12/22/24 11:52 <Ni Hale PA-C - Last Filed: 12/20/24 21:42> Labs: Lab Results 12/20/24 12/20/24 12/21/24 Range/Units 14:20 16:18 05:35 WBC 8.2 5.8 (4.5-10.0) K/mm3 RBC 4.05 L 3.60 L (4.2-5.4) M/mm3 Hgb 12.6 11.0 L (12.0-15.0) g/dL Hct 37.4 34.1 L (37.0-47.0) % MCV 92.3 94.7 (80-100) fl MCH 31.1 30.6 (26-34) pg MCHC 33.7 32.3 (32-36) g/dl RDW 12.9 13.1 (11.5-14.5) % Plt Count 278 251 (150-375) k/mm3 MPV 9.7 9.8 (7.4-10.4) fl Immature Gran % (Auto) 0.2 (0-0.5) % Neut % (Auto) 72.7 (45.5-73.1) % Lymph % (Auto) 18.4 (18.3-44.2) % [place] % (Auto) 7.7 (2.6-8.5) % Eos % (Auto) 0.6 (0-4.4) % Baso % (Auto) 0.4 (0.2-1.2) % Lymph # (Auto) 1.50 (0.9-3.2) K/mm3 [place] # (Auto) 0.6 (0.1-0.6) K/mm3 Eos # (Auto) 0.1 (0-0.3) K/mm3 Baso # (Auto) 0.0 (0.0-0.1) K/mm3 Abs Immat Gran (auto) 0.02 (0.00-0.031) K/mm3 Absolute Neuts (auto) 5.9 (1.3-6.7) K/mm3 Absolute Nucleated RBC 0.000 (0.0-0.012) K/mm3 Nucleated RBC % 0.0 (0.0-0.2) % Sodium 134 L 131 L (137-145) mmol/L Potassium 3.7 3.6 (3.4-5.0) mmol/L Chloride 99 100 (98-107) mmol/L Carbon Dioxide 25 23 (22-30) mmol/L Anion Gap 10 8 (4-12) mmol/L BUN 14 14 (7-17) mg/dL Creatinine 1.19 H 1.12 H (0.7-1.0) mg/dL Estim Creat Clear Calc 24 26 ml/min Estimated GFR 44 L 47 L (59 - ) Glucose 99 90 (65-110) mg/dL Calcium 9.8 9.1 (8.4-10.2) mg/dL Total Bilirubin 0.7 (0.2-1.3) mg/dL AST 41 H (14-36) U/L ALT 18 (6-35) U/L Alkaline Phosphatase 110 (38-126) U/L Total Creatine Kinase 136 H (30-135) U/L Troponin I 0.018 (0.000-0.034) ng/mL Total Protein 7.7 (6.3-8.2) g/dL Albumin 4.4 (3.5-5.1) g/dL Triglycerides 57 (<150) mg/dL Cholesterol 140 (0-200) mg/dL LDL Cholesterol Direct 52 mg/dL HDL Direct 62 mg/dL Urine Color Yellow (Yellow) Urine Appearance Clear (Clear) Urine pH 7.5 (5.0-9.0) Ur Specific [place] 1.035 (1.001-1.035) Urine Protein Negative (Negative) mg/dL Urine Glucose (UA) Negative (Negative) mg/dL Urine Ketones Trace H (Negative) mg/dL Ur Blood (Man) Negative (Negative) Urine Nitrate Negative (Negative) Urine Bilirubin Negative (Negative) Urine Urobilinogen 0.2 (<2.0) mg/dL Leukocyte Esterase Rfl Negative (Negative) DEMAR/UL <Ni Hale PA-C - Last Filed: 12/20/24 21:42> Lab Results 12/20/24 12/20/24 12/21/24 Range/Units 14:20 16:18 05:35 WBC 8.2 5.8 (4.5-10.0) K/mm3 RBC 4.05 L 3.60 L (4.2-5.4) M/mm3 Hgb 12.6 11.0 L (12.0-15.0) g/dL Hct 37.4 34.1 L (37.0-47.0) % MCV 92.3 94.7 (80-100) fl MCH 31.1 30.6 (26-34) pg MCHC 33.7 32.3 (32-36) g/dl RDW 12.9 13.1 (11.5-14.5) % Plt Count 278 251 (150-375) k/mm3 MPV 9.7 9.8 (7.4-10.4) fl Immature Gran % (Auto) 0.2 (0-0.5) % Neut % (Auto) 72.7 (45.5-73.1) % Lymph % (Auto) 18.4 (18.3-44.2) % [place] % (Auto) 7.7 (2.6-8.5) % Eos % (Auto) 0.6 (0-4.4) % Baso % (Auto) 0.4 (0.2-1.2) % Lymph # (Auto) 1.50 (0.9-3.2) K/mm3 [place] # (Auto) 0.6 (0.1-0.6) K/mm3 Eos # (Auto) 0.1 (0-0.3) K/mm3 Baso # (Auto) 0.0 (0.0-0.1) K/mm3 Abs Immat Gran (auto) 0.02 (0.00-0.031) K/mm3 Absolute Neuts (auto) 5.9 (1.3-6.7) K/mm3 Absolute Nucleated RBC 0.000 (0.0-0.012) K/mm3 Nucleated RBC % 0.0 (0.0-0.2) % Sodium 134 L 131 L (137-145) mmol/L Potassium 3.7 3.6 (3.4-5.0) mmol/L Chloride 99 100 (98-107) mmol/L Carbon Dioxide 25 23 (22-30) mmol/L Anion Gap 10 8 (4-12) mmol/L BUN 14 14 (7-17) mg/dL Creatinine 1.19 H 1.12 H (0.7-1.0) mg/dL Estim Creat Clear Calc 24 26 ml/min Estimated GFR 44 L 47 L (59 - ) Glucose 99 90 (65-110) mg/dL Calcium 9.8 9.1 (8.4-10.2) mg/dL Total Bilirubin 0.7 (0.2-1.3) mg/dL AST 41 H (14-36) U/L ALT 18 (6-35) U/L Alkaline Phosphatase 110 (38-126) U/L Total Creatine Kinase 136 H (30-135) U/L Troponin I 0.018 (0.000-0.034) ng/mL Total Protein 7.7 (6.3-8.2) g/dL Albumin 4.4 (3.5-5.1) g/dL Triglycerides 57 (<150) mg/dL Cholesterol 140 (0-200) mg/dL LDL Cholesterol Direct 52 mg/dL HDL Direct 62 mg/dL Urine Color Yellow (Yellow) Urine Appearance Clear (Clear) Urine pH 7.5 (5.0-9.0) Ur Specific [place] 1.035 (1.001-1.035) Urine Protein Negative (Negative) mg/dL Urine Glucose (UA) Negative (Negative) mg/dL Urine Ketones Trace H (Negative) mg/dL Ur Blood (Man) Negative (Negative) Urine Nitrate Negative (Negative) Urine Bilirubin Negative (Negative) Urine Urobilinogen 0.2 (<2.0) mg/dL Leukocyte Esterase Rfl Negative (Negative) DEMAR/UL <Juancho Marmolejo MD - Last Filed: 12/29/24 07:19> Imaging Data Radiologist's impression: ITS Impressions Chest X-Ray 12/20/24 14:47 Impression: No acute cardiopulmonary abnormality. Head CT 12/20/24 14:47 Impression: 1.No acute intracranial abnormality. Cervical Spine CT 12/20/24 14:49 Impression: No acute abnormality. Head/Neck CTA 12/20/24 15:08 IMPRESSION: 1. Motion artifact limits evaluation. No critical stenosis, occlusion or aneurysm is identified. <VALERIY Mejias Last Filed: 12/20/24 21:42> ECG Data EKG #1: ECG completion date: 12/20/24 <VALERIY Mejias Last Filed: 12/20/24 21:42> EKG Interpretation: normal rate, sinus rhythm, LBBB, normal QT and no acute changes (compared to EKG 05/24) <VALERIY Mejias Last Filed: 12/20/24 21:42> Critical Care Time Critical Care Time Critical Care Time: No <VALERIY Mejias Last Filed: 12/20/24 21:42> Discharge Plan Discharge Clinical Impression: Dizziness Syncope Qualifiers: Syncope type: unspecified Qualified Code(s): R55 - Syncope and collapse <VALERIY Mejias Last Filed: 12/20/24 21:42> Patient Disposition: Still a Patient <VALERIY Mejias Last Filed: 12/20/24 21:42> Condition: Stable <VALERIY Mejias Last Filed: 12/20/24 21:42>
[2024-12-20] MEDS: SODIUM CHLORIDE 0.9% IV 500 ML 999 ML IV CONT (14:47)
[2024-12-20] MEDS: MECLIZINE HCL 25 MG TABLET PO (14:47)
[2024-12-20] MEDS: ONDANSETRON INJ 4 MG/2 ML VIAL IV PUSH (14:47)
[2024-12-20 14:51] LABS: Troponin I 0.018 ng/mL (0.000-0.034)
--- NOTE | 2024-12-20 15:52 | PC.NURSE ---
patient declined straight cath, stated she would attempt to provide a urine sample once her fluids complete
[2024-12-20 16:33] LABS: Add Urine Microscopic? NO; Appearance Urine Clear (Clear); Glucose Urine UA Negative (Negative); Leukocyte Esterase Ur Negative LEU/UL (Negative); Nitrate Urine Negative (Negative); Specific Grav Ur 1.035 (1.001-1.035)
[2024-12-20] MEDS: ACETAMINOPHEN 500 MG TABLET 1000 MG PO (17:44)
--- NOTE | 2024-12-20 22:32 | PM.IMHP ---
H&P: HPI History of Present Illness Date/Time: 12/20/24 1400 Chief Complaint: Dizziness Narrative: 79-year-old female with a past medical history of anxiety and depression, carotid stenosis, CHF, COPD, CAD, HTN, hyperlipidemia, gastric ulcer, cerebellar CVA in 2020, migraines presents to the emergency department on 12/20/2024 with complaints of dizziness and syncope. Patient states she has been dizzy and nauseous for the past 2 days and fell on 12/19, striking the left side of her head during a syncopal episode. Family brought the patient on 12/20 as they felt she was ?more confused than usual.Patient endorses ongoing dizziness but denies any recent vomiting. Further denies any symptoms of numbness, weakness, chest pain. Patient tells me she has been having these dizziness and syncopal episodes for several months. She describes them as sudden onset of dizziness and collapse, usually striking her head or falling down stairs. The patient further states she has lost about 30 lb recently due to dizziness and nausea. She does not usually seek medical evaluation after these episodes. Lab significant for a creatinine 1.19, AST 41. UA without signs of infection. Troponin negative. Chest x-ray with no acute cardiopulmonary abnormality. Head CT shows an old left occipital infarct and no acute intracranial abnormalities. Cervical spine CT with no acute abnormality. Head neck CTA with motion artifact but no critical stenosis, occlusions or aneurysms identified. EKG with sinus rhythm and left bundle branch block Of note, neurology in August of 2020 mentions the possibility of vertebral steal syndrome during the workup for her left cerebellar CVA due to left subclavian artery moderate stenosis between the origin and the vertebral on the left side. Report was sent to neurosurgical services at [facility] for further workup and management. Unclear if patient never followed up. Records requested. Spoke with Dr. Tompkins neurology fellow at [facility] to inquire about transfer for higher level neurological care. At this time, he does not feel she has an acute need for transfer as her imaging here has been without acute processes. Review of Systems Review of Systems: All systems reviewed & are unremarkable except as noted in HPI and below PMFSH Past Medical History Medical History Macular degeneration of left eye Gastric ulcer Urge urinary incontinence Carotid stenosis Coronary artery disease Hyperlipidemia CHF (congestive heart failure) Migraines Anxiety and depression COPD (chronic obstructive pulmonary disease) Essential hypertension Surgical History Surgical History H/O hysterectomy for benign disease Status post cataract extraction of both eyes with insertion of intraocular lens Status post right rotator cuff repair History of bowel resection Due to small-bowel obstruction History of carotid endarterectomy Family History Family History Father Acute myocardial infarction Hypertension Congestive heart failure Sibling Acute myocardial infarction Congestive heart failure Mother Stomach cancer Unknown Diabetes mellitus Social History Social History Years smoked: 30 Smoking status: Former smoker Tobacco type: cigarettes Second hand tobacco smoke exposure: Yes Alcohol intake: never Substance use: never Substance use type: marijuana Last use: couple weeks ago Lack of Transportation: No Lack of Food: Never True Current Housing: I Have Housing Concerned About Future Housing: No Difficulty Paying Gas/Electric Bills: YES Difficulty Paying for Meds: No Currently Unemployed: No Education: High School Diploma/GED Difficulty w/ Childcare or Family Care: No Gender identity (if verbalized by the patient): Female Spiritual care concerns: No Meds Home Medications and Allergies Home Medications ?Medication ?Instructions ?Recorded ?Confirmed ?Type amlodipine 5 mg tablet 5 mg PO DAILY 08/17/20 08/17/20 History atorvastatin 10 mg tablet 10 mg PO DAILY 08/17/20 08/17/20 History budesonide-formoterol HFA 160 2 puff inhalation QID PRN 08/17/20 08/17/20 History mcg-4.5 mcg/actuation aerosol Shortness Of Breath Or Wheezing inhaler (Symbicort) bupropion HCl 150 mg 24 hr tablet, 150 mg PO DAILY 08/17/20 08/17/20 History extended release carvedilol 6.25 mg tablet 6.25 mg PO BID 08/17/20 08/17/20 History clonidine HCl 0.2 mg tablet 0.2 mg PO HS 08/17/20 08/17/20 History lisinopril 40 mg tablet 40 mg PO DAILY 08/17/20 08/17/20 History oxybutynin chloride 5 mg 5 mg PO DAILY 08/17/20 08/17/20 History tablet,extended release 24 hr sertraline 100 mg tablet 100 mg PO BID 08/17/20 08/17/20 History Allergies Allergy/AdvReac Type Severity Reaction Status Date / Time Sulfa (Sulfonamide AdvReac Unknown SEVERE N/V Verified 12/20/24 22:26 Antibiotics) Vital Signs Vital Signs - 24 hr 12/20/24 13:40 12/20/24 13:57 12/20/24 14:04 Temperature 98.4 F Pulse Rate 71 79 Respiratory Rate 18 15 Blood Pressure 158/92 H Pulse Oximetry 100 Oxygen Delivery Room Air 12/20/24 14:15 12/20/24 15:10 12/20/24 15:41 Temperature Pulse Rate 68 78 78 Respiratory Rate 15 19 23 H Blood Pressure Pulse Oximetry 100 98 Oxygen Delivery 12/20/24 15:52 12/20/24 16:36 12/20/24 16:46 Temperature Pulse Rate 77 69 76 Respiratory Rate 15 16 18 Blood Pressure Pulse Oximetry 96 100 100 Oxygen Delivery 12/20/24 17:00 12/20/24 17:15 12/20/24 17:34 Temperature Pulse Rate 73 81 81 Respiratory Rate 11 L 12 15 Blood Pressure Pulse Oximetry 98 100 100 Oxygen Delivery 12/20/24 17:45 12/20/24 18:09 12/20/24 18:15 Temperature Pulse Rate 81 83 75 Respiratory Rate 22 H 15 7 L Blood Pressure 188/89 H Pulse Oximetry 96 100 92 Oxygen Delivery 12/20/24 19:45 12/20/24 21:04 12/20/24 21:40 Temperature Pulse Rate 76 67 Respiratory Rate 20 Blood Pressure 184/86 H 127/68 Pulse Oximetry 98 Oxygen Delivery 12/20/24 21:45 12/20/24 21:46 12/20/24 21:51 Temperature 98.5 F Pulse Rate 60 Respiratory Rate 16 Blood Pressure 141/76 H 127/68 141/77 H Pulse Oximetry 98 Oxygen Delivery Exam Narrative: GENERAL: non-toxic appearing, in no acute distress. HEAD: Normocephalic, tenderness to the left side of scalp. EYES: PERRLA. Conjunctivae clear. NOSE: Normal no drainage. THROAT: Pharynx clear, no exudate. NECK: Trachea midline. No adenopathy, no masses. RESPIRATORY: Airway patent, respirations nonlabored. CTA. CARDIOVASCULAR: Regular rate and rhythm BREASTS: Defer GASTROINTESTINAL: Abdomen is soft and nontender. No organomegaly. Bowel sounds normal in all quadrants. GENITOURINARY: Defer MUSCULOSKELETAL: Moves all extremities. No gross deformities. No calf tenderness. SKIN: Warm, dry, normal color. NEURO: A&O X4. Speech clear PSYCHIATRIC: Normal interaction H&P: Results Labs Labs: Short CBC 12/20/24 Range/Units 14:20 WBC 8.2 (4.5-10.0) K/mm3 Hgb 12.6 (12.0-15.0) g/dL Hct 37.4 (37.0-47.0) % Plt Count 278 (150-375) k/mm3 BMP 12/20/24 14:20 Sodium 134 L Potassium 3.7 Chloride 99 Carbon Dioxide 25 BUN 14 Creatinine 1.19 H Glucose 99 Calcium 9.8 Cardiac Enzymes 12/20/24 Range/Units 14:20 Troponin I 0.018 (0.000-0.034) ng/mL Liver Function 12/20/24 Range/Units 14:20 Total Bilirubin 0.7 (0.2-1.3) mg/dL AST 41 H (14-36) U/L ALT 18 (6-35) U/L Alkaline Phosphatase 110 (38-126) U/L Albumin 4.4 (3.5-5.1) g/dL Urine 12/20/24 Range/Units 16:18 Urine Color Yellow (Yellow) Urine Appearance Clear (Clear) Urine pH 7.5 (5.0-9.0) Ur Specific [place] 1.035 (1.001-1.035) Urine Protein Negative (Negative) mg/dL Urine Glucose (UA) Negative (Negative) mg/dL Assessment and Plan Assessment and plan (1) Syncope: Qualifiers: Syncope type: unspecified Qualified Code(s): R55 - Syncope and collapse Code(s): R55 - Syncope and collapse Status: Acute Assessment and Plan: Patient reports syncopal episode on 12/19 which resulted in her striking her head. States these episodes have been happening for the past several months but she does not seek medical evaluation. Head CT negative. CTA head neck with motion artifact but no critical stenosis, occlusions or aneurysms identified. Unclear etiology. Differentials include vertebral steal syndrome, CVA, dysrhythmia, orthostatic hypotension. -orthostatics negative in ED -meclizine -Zofran -neurology consult -cardiology consult (2) Dizziness: Code(s): R42 - Dizziness and giddiness Status: Acute Assessment and Plan: Patient with dizziness for 2 days prior to admission which included a syncopal episode. No new deficits and patient denies any numbness or weakness. No change of vision. No difficulty swallowing. Head CT shows an old left occipital infarct and no acute intracranial abnormalities. Head neck CTA with motion artifact but no critical stenosis, occlusions or aneurysms identified. Possible vertebral steal syndrome noted in 2020 with a referral to [facility]. Dr. Tompkins neurology fellow at [facility] does not feel there is an acute need for transfer. - admission for observation and telemetry - CXR with no acute abnormalities - neurology consulted -will follow-up on 12/22 - brain MRI w/wo ordered - echo w/Bubble ordered -carotid Dopplers ordered - neuro checks Q4 - heart healthy diet - PT/OT to eval and cindi - monitor daily labs, lipid panel - up with assist -Continue Atorvastatin - consider 30 day event monitoring at discharge (3) HTN (hypertension), benign: Code(s): I10 - Essential (primary) hypertension Status: Chronic Assessment and Plan: Blood pressure 150/92 on admission -await full med reconciliation -did resume amlodipine and Coreg Plan Diet: Heart healthy GI prophylaxis: NA DVT prophylaxis: SCDs lines/drains: PIV Fluids: 500 mL NS Code status: Full Quality VTE Prophylaxis VTE prophylaxis: mechanical ordered Hospitalist [facility] Advance Care Plan I have confirmed that the patient's Advanced Care Plan is present, code status is documented, or surrogate decision maker is listed in patient medical record.: Yes Medication Reconciliation I have utilized all available resources to obtain, update and review the patients current medications (includes all prescriptions, OTC, herbals, cannabis, and nutritional supplements).: Yes
[2024-12-21] VITALS (16 sets, daily range): BP systolic 113–178; BP diastolic 60–84; PULSE 52–62; RESP 16; TEMP 35.9–36.6; O2SAT 97–100; BMI 18.2
--- NOTE | 2024-12-21 | ECHO_ITS ---
Patient Info Name: Margy Marin Age: 79 years : 1945 Gender: Female Ht: 61 in Wt: 96 lbs BSA: 1.36 m2 HR: 54 bpm BP: 150 / 78 mmHg Technical Quality: Good Exam Date: 12/21/2024 9:47 AM Patient Status: I Admit Date: 12/21/2024 Exam Type: CA echo doppler w bubble study Complete two-dimensional, color flow and Doppler transthoracic echocardiogram is performed with agitated saline. Staff Referring Physician: J[employer] Analyst: Oscar Trevino III Attending Provider: Ross Thomas Contrast/Agitated Saline Contrast/Ag. Saline: Agitated Saline Amount: 12.00 ml Administered By: Oscar Trevino III Existing IV Access: Yes IV Access Condition: patent with no signs of infiltration Summary 1. Left ventricular chamber dimension is normal. 2. Left ventricular systolic function is preserved, estimated at 50-55. 3. There is moderate concentric increased left ventricular wall thickness. 4. Left ventricular septal wall motion is abnormal with septal motion related to bundle branch block. 5. The left ventricular diastolic function is grade I diastolic dysfunction. 6. Left atrial chamber dimension is mildly enlarged. 7. There is trace mitral valve regurgitation. 8. There is trace tricuspid valve regurgitation. 9. No pulmonary hypertension, estimated pulmonary arterial systolic pressure is 24 mmHg. 10. Suspected small patent foramen ovale visualized by 2D and agitated saline imaging. 11. Agitated saline injection with and without valsalva maneuver opacified right side cardiac chambers and few bubbles shunt to left side cardiac chambers with valsalva only. Left Ventricle Tissue doppler was not performed. Left ventricular chamber dimension is normal. Left ventricular systolic function is preserved, estimated at 50-55. There is moderate concentric increased left ventricular wall thickness. Left ventricular septal wall motion is abnormal with septal motion related to bundle branch block. The left ventricular diastolic function is grade I diastolic dysfunction. Right Ventricle Right ventricular chamber dimension is normal. Right ventricular systolic function is normal and with normal TAPSE 2.2 cm. Left Atria Left atrial chamber dimension is mildly enlarged. Right Atria Right atrial chamber dimension is normal. Atrial Septum Agitated saline injection with and without valsalva maneuver opacified right side cardiac chambers and few bubbles shunt to left side cardiac chambers with valsalva only. Suspected small patent foramen ovale visualized by 2D and agitated saline imaging. Aortic Valve The aortic valve is trileaflet. There is no aortic valve stenosis. There is no aortic valve regurgitation. Pulmonic Valve There is no pulmonic regurgitation. Mitral Valve There is no mitral valve stenosis. There is trace mitral valve regurgitation. Tricuspid Valve There is trace tricuspid valve regurgitation. No pulmonary hypertension, estimated pulmonary arterial systolic pressure is 24 mmHg. Pericardium/Pleural There is no pericardial effusion. Inferior Vena Cava Normal inferior vena cava with >50% collapse upon inspiration consistent with normal right atrial pressure, 5 mmHg. Aorta The aortic root size at the sinus of Valsalva is normal. Left Ventricular Outflow Tract Name Value Normal LVOT 2D LVOT Diameter 2.1 cm LVOT Doppler LVOT Peak Velocity 123 cm/s LVOT Peak Gradient 6 mmHg LVOT Mean Gradient 2 mmHg LVOT VTI 22 cm LVOT VTI/AV VTI Ratio 0.7 LVOT Stroke Volume 75 ml LVOT CO 4.0 l/min LVOT CI 2.9 l/min/m2 Pulmonic Valve Name Value Normal PV Doppler PV Peak Velocity 101 cm/s PV Peak Gradient 4 mmHg PV Mean Gradient 2 mmHg Mitral Valve Name Value Normal MV Doppler MV Peak Gradient 3 mmHg MV Mean Gradient 1 mmHg MV Area (Cont Eq VTI) 3.0 cm2 MV Diastolic Function MV E Peak Velocity 44 cm/s MV A Peak Velocity 86 cm/s MV E/A 0.5 MV Decel Time (PW) 385 ms Tricuspid Valve Name Value Normal TV Regurgitation Doppler TR Peak Velocity 219 cm/s TR Peak Gradient 19 mmHg Estimated PAP/RSVP RA Pressure 5 mmHg <=5 PA Systolic Pressure 24 mmHg <36 RV Systolic Pressure 24 mmHg <36 TV Annular TDI TV Lateral Micaela s' Velocity 13.6 cm/s >=9.5 Aortic Valve Name Value Normal AV Doppler AV Peak Velocity 151 cm/s AV Peak Gradient 9 mmHg AV Mean Gradient 4 mmHg AV VTI 31 cm AV Area (Cont Eq VTI) 2.4 cm2 >=3.0 AV Area (Cont Eq Paul) 2.8 cm2 AV DI (Paul) 0.82 AV Regurgitation 2D LVOT Area 3.5 cm2 Ventricles Name Value Normal LV Dimensions 2D/MM IVS Diastolic Thickness (2D) 1.2 cm 0.6-1.0 LVID Diastole (2D) 4.2 cm 3.8-5.2 LVIW Diastolic Thickness (2D) 0.7 cm 0.6-0.9 LVID Systole (2D) 3.3 cm 2.2-3.5 LVOT Diameter 2.1 cm LV Mass (2D Cubed) 131.14 g 67.00-162.00 LV Mass Index (2D Cubed) 96 g/m2 43-95 Relative Wall Thickness (2D) 0.35 <=0.42 LV Fractional Shortening/Ejection Fraction 2D/MM LV Fractional Shortening (2D) 20 % 27-45 LV EF (2D Teichholz) 42 % LV Diastolic Volume (4C MOD) 67 ml LV EF (4C MOD) 44 % LV Diastolic Volume (2C MOD) 54 ml LV EF (2C MOD) 53 % LV Diastolic Volume (BP MOD) 63 ml 46-106 LV Diastolic Volume Index (BP MOD) 46 ml/m2 29-61 LV Systolic Volume (BP MOD) 33 ml 14-42 LV Systolic Volume Index (BP MOD) 24 ml/m2 8-24 LV EF (BP MOD) 47 % 54-74 LV Diastolic Length (4C) 7.0 cm LV Systolic Length (4C) 6.0 cm LV Stroke Volume (4C MOD) 29 ml Atria Name Value Normal LA Dimensions LA Volume (4C A-L) 50 ml LA Volume (BP A-L) 55 ml RA Dimensions RA Systolic Major [place] Length (4C) 4.9 cm 2.2-2.8 RA Area (4C) 14.2 cm2 <=18.0 Report Signatures Amended by Trev Quiroz DO on 12/22/2024 10:36 AM
[2024-12-21 06:09] LABS: Hematocrit 34.1 % (37.0-47.0); Hemoglobin 11.0 g/dL (12.0-15.0); Mean Corpuscular HGB Conc 32.3 g/dl (32-36); Mean Corpuscular Hemoglobin 30.6 pg (26-34); Mean Corpuscular Volume 94.7 fl (80-100); Platelet Count Result 251 k/mm3 (150-375); Red Blood Count 3.60 M/mm3 (4.2-5.4); White Blood Count 5.8 K/mm3 (4.5-10.0)
--- NOTE | 2024-12-21 06:35 | PC.NURSE ---
2200:Pt does not remember the Meds she takes. Said daughter forgot to cook pickled meat her med list from home. Per pt, she will try to get someone to send her a picture of her med list later today. 629: pt contacted her daughter in law and she sent her the list of meds she takes at home. The list does not have Carvedilol and Clonidine. Per pt, she takes only the 7 meds. Home made updated accordingly. May need additional verification.
[2024-12-21 06:53] LABS: Anion Gap 8 mmol/L (4-12); Blood Urea Nitrogen 14 mg/dL (7-17); Calcium 9.1 mg/dL (8.4-10.2); Carbon Dioxide 23 mmol/L (22-30); Chloride 100 mmol/L (98-107); Cholesterol 140 mg/dL (0-200); Estimated CRCL calculation 26 ml/min; Estimated Glomerular Filt Rate 47; Glucose 90 mg/dL (65-110); HDL Direct 62 mg/dL; Potassium 3.6 mmol/L (3.4-5.0); Sodium 131 mmol/L (137-145); Triglycerides 57 mg/dL (<150)
--- NOTE | 2024-12-21 07:58 | P.PNIM_ITS ---
Progress Note: A&P Assessment and Plan (1) Syncope: Qualifiers: Syncope type: unspecified Qualified Code(s): R55 - Syncope and collapse Code(s): R55 - Syncope and collapse Status: Acute Assessment and Plan: Patient reports syncopal episode on 12/19 which resulted in her striking her head. States these episodes have been happening for the past several months but she does not seek medical evaluation. Head CT negative. CTA head neck with motion artifact but no critical stenosis, occlusions or aneurysms identified. Unclear etiology. Differentials include vertebral steal syndrome, CVA, dysrhythmia, orthostatic hypotension. -orthostatics negative in ED - MRI brain and echo ordered -meclizine -Zofran - monitor on tele -cardiology consulted -recommended echo and MRI brain. 30-day event monitor at discharge. - PT/OT - recommended [facility] (2) Dizziness: Code(s): R42 - Dizziness and giddiness Status: Acute Assessment and Plan: Patient with dizziness for 2 days prior to admission which included a syncopal episode. No new deficits and patient denies any numbness or weakness. No change of vision. No difficulty swallowing. Head CT shows an old left occipital infarct and no acute intracranial abnormalities. Head neck CTA with motion artifact but no critical stenosis, occlusions or aneurysms identified. Possible vertebral steal syndrome noted in 2020 with a referral to [facility]. Dr. Tompkins neurology fellow at [facility] does not feel there is an acute need for transfer. - admission for observation and telemetry - CXR with no acute abnormalities - neurology consulted -will follow-up on 12/22 - brain MRI w/wo ordered - echo w/Bubble ordered - neuro checks Q4 - heart healthy diet - PT/OT to eval and treat - monitor daily labs, lipid panel - up with assist -Continue Atorvastatin, ASA (3) HTN (hypertension), benign: Code(s): I10 - Essential (primary) hypertension Status: Chronic Assessment and Plan: Blood pressure 150/92 on admission -continue amlodipine and lisinopril - per reports no longer on Coreg and clonidine Plan DVT prophylaxis: SCDs, Lovenox Code status: Full Dispo: likely home tomorrow pending testing Subjective Date/time seen: 12/21/24 07:58 Interval history: Patient seen and examined at bedside. Dizziness improved. Worked with therapy with minimal dizziness. Review of Systems Review of Systems: All systems reviewed & are unremarkable except as noted in HPI and below Exam Narrative: General: NAD Eyes: EOMI ENT: neck supple Cardiovascular: Regular rate and rhythm Respiratory: Clear to auscultation, respirations even and unlabored on RA Gastrointestinal: Soft, non tender Genitourinary: no suprapubic tenderness Musculoskeletal: No edema Skin: warm, dry Neuro: Alert and oriented x4. Cranial nerves II-XII intact. Face symmetric. Speech clear. Strength 5/5 in BUEs/BLEs. Sensation to light touch intact face, BUE/BLEs. No dysmetria BUE/BLEs. Psych: Mood appropriate Objective Data Vital Signs Vital Signs: Vital Signs - 24 hr 12/20/24 13:40 12/20/24 13:57 12/20/24 14:04 Temperature 98.4 F Pulse Rate 71 79 Respiratory Rate 18 15 Blood Pressure 158/92 H Pulse Oximetry 100 Oxygen Delivery Room Air 12/20/24 14:15 12/20/24 15:10 12/20/24 15:41 Temperature Pulse Rate 68 78 78 Respiratory Rate 15 19 23 H Blood Pressure Pulse Oximetry 100 98 Oxygen Delivery 12/20/24 15:52 12/20/24 16:36 12/20/24 16:46 Temperature Pulse Rate 77 69 76 Respiratory Rate 15 16 18 Blood Pressure Pulse Oximetry 96 100 100 Oxygen Delivery 12/20/24 17:00 12/20/24 17:15 12/20/24 17:34 Temperature Pulse Rate 73 81 81 Respiratory Rate 11 L 12 15 Blood Pressure Pulse Oximetry 98 100 100 Oxygen Delivery 12/20/24 17:45 12/20/24 18:09 12/20/24 18:15 Temperature Pulse Rate 81 83 75 Respiratory Rate 22 H 15 7 L Blood Pressure 188/89 H Pulse Oximetry 96 100 92 Oxygen Delivery 12/20/24 19:45 12/20/24 21:04 12/20/24 21:15 Temperature Pulse Rate 76 67 67 Respiratory Rate 20 20 Blood Pressure 184/86 H 184/86 H Pulse Oximetry 98 98 Oxygen Delivery 12/20/24 21:40 12/20/24 21:45 12/20/24 21:46 Temperature 98.5 F Pulse Rate 60 Respiratory Rate 16 Blood Pressure 127/68 141/76 H 127/68 Pulse Oximetry 98 Oxygen Delivery 12/20/24 21:51 12/21/24 00:00 12/21/24 00:00 Temperature 97.6 F Pulse Rate 62 54 L Respiratory Rate 16 Blood Pressure 141/77 H 150/78 H Pulse Oximetry 98 Oxygen Delivery 12/21/24 00:33 12/21/24 00:35 12/21/24 04:00 Temperature Pulse Rate 62 62 54 L Respiratory Rate Blood Pressure 113/60 Pulse Oximetry Oxygen Delivery 12/21/24 04:00 12/21/24 06:00 12/21/24 07:49 Temperature 97.8 F 97.6 F 97.1 F L Pulse Rate 56 L 54 L 55 L Respiratory Rate 16 16 16 Blood Pressure 150/75 H 150/78 H 155/70 H Pulse Oximetry 99 98 97 Oxygen Delivery Intake/Output Intake/Output: Intake & Output 12/18/24 12/19/24 12/20/24 12/21/24 23:59 23:59 23:59 23:59 Intake Total 500 100 Balance 500 100 Meds/Results Medications: Active Medications Generic Name Dose Route Start Last Admin Trade Name Freq PRN Reason Stop Dose Admin Acetaminophen 1,000 mg 12/21/24 00:25 Acetaminophen 500 Mg Tablet PO Q6H PRN Mild Pain (1-3) or Fever Amlodipine Besylate 5 mg 12/21/24 09:00 Amlodipine Besylate 5 Mg Tablet PO DAILY [facility] Atorvastatin Calcium 10 mg 12/21/24 09:00 Atorvastatin 10 Mg Tablet PO DAILY [facility] Carvedilol 6.25 mg 12/20/24 22:45 12/21/24 00:35 Carvedilol 6.25 Mg Tablet PO 6.25 mg Q12HR MINA Administration Meclizine HCl 25 mg 12/20/24 22:32 Meclizine Hcl 25 Mg Tablet PO TID PRN Vertigo Ondansetron HCl 4 mg 12/20/24 22:32 Ondansetron Inj 4 Mg/2 Ml Vial IV PUSH Q6H PRN Nausea And Vomiting Perflutren Lipid Microsphere 0 ml 12/20/24 22:39 Perflutren Lipid Microspheres 1.5 Ml Vial Diluted To 10 Ml Total Volume IV PUSH 12/23/24 22:40 ONCE PRN adequate visualization Protocol Radiology Results: ITS Impressions Chest X-Ray 12/20/24 14:47 Impression: No acute cardiopulmonary abnormality. Head CT 12/20/24 14:47 Impression: 1.No acute intracranial abnormality. Cervical Spine CT 12/20/24 14:49 Impression: No acute abnormality. Head/Neck CTA 12/20/24 15:08 IMPRESSION: 1. Motion artifact limits evaluation. No critical stenosis, occlusion or aneurysm is identified. Labs Labs: Laboratory Results - last 24 hr 12/20/24 12/20/24 12/21/24 14:20 16:18 05:35 WBC 8.2 5.8 RBC 4.05 L 3.60 L Hgb 12.6 11.0 L Hct 37.4 34.1 L MCV 92.3 94.7 MCH 31.1 30.6 MCHC 33.7 32.3 RDW 12.9 13.1 Plt Count 278 251 MPV 9.7 9.8 Immature Gran % (Auto) 0.2 Neut % (Auto) 72.7 Lymph % (Auto) 18.4 [place] % (Auto) 7.7 Eos % (Auto) 0.6 Baso % (Auto) 0.4 Lymph # (Auto) 1.50 [place] # (Auto) 0.6 Eos # (Auto) 0.1 Baso # (Auto) 0.0 Abs Immat Gran (auto) 0.02 Absolute Neuts (auto) 5.9 Absolute Nucleated RBC 0.000 Nucleated RBC % 0.0 Sodium 134 L 131 L Potassium 3.7 3.6 Chloride 99 100 Carbon Dioxide 25 23 Anion Gap 10 8 BUN 14 14 Creatinine 1.19 H 1.12 H Estim Creat Clear Calc 24 26 Estimated GFR 44 L 47 L Glucose 99 90 Calcium 9.8 9.1 Total Bilirubin 0.7 AST 41 H ALT 18 Alkaline Phosphatase 110 Troponin I 0.018 Total Protein 7.7 Albumin 4.4 Triglycerides 57 Cholesterol 140 LDL Cholesterol Direct 52 HDL Direct 62 Urine Color Yellow Urine Appearance Clear Urine pH 7.5 Ur Specific [place] 1.035 Urine Protein Negative Urine Glucose (UA) Negative Urine Ketones Trace H Ur Blood (Man) Negative Urine Nitrate Negative Urine Bilirubin Negative Urine Urobilinogen 0.2 Leukocyte Esterase Rfl Negative Quality VTE Prophylaxis VTE prophylaxis: mechanical ordered and pharmacologic ordered
--- NOTE | 2024-12-21 08:01 | PM.CNCAR ---
Assessment and Plan Assessment and plan (1) Syncope: Qualifiers: Syncope type: unspecified Qualified Code(s): R55 - Syncope and collapse Code(s): R55 - Syncope and collapse Status: Acute Assessment and Plan: Unclear etiology. Differential includes, orthostatic syncope, cardiac pauses, vertigo, neurologic. Obtain echo and MRI brain today. Upon discharge she will need to wear 30 day event monitor. (2) HTN (hypertension), benign: Code(s): I10 - Essential (primary) hypertension Status: Chronic Assessment and Plan: Stable. (3) Hyperlipidemia: Code(s): E78.5 - Hyperlipidemia, unspecified Status: Acute Assessment and Plan: On Atorvastatin. History of Present Illness History of Present Illness Consult date/time: 12/21/24 08:01 Reason For Visit: Dizziness Narrative: 79 yr old woman admitted for dizziness and syncope. She has a history of stroke a year ago with shaking tremors (resolved), LBBB, hypertension, dyslipidemia. Reports for last 7 months she has passed out 5 times with each one starting with dizziness/spinning sensation while standing and next thing she knows she's waking up off the floor and once hit her head falling down. She drink very little fluid, perhaps 1 bottle of water a day. She can walk a block and limited by leg numbness. Denies chest pain, sob, orthopnea, PND, edema, palpitations. Review of Systems Constitutional: Constitutional: Reports as per HPI, Denies chills and Denies fever(s) Cardiovascular: Cardiovascular: Reports as per HPI, Denies chest pain and Denies irregular heart rhythm Respiratory: Respiratory: Reports as per HPI and Denies dyspnea Gastrointestinal: Gastrointestinal: Reports as per HPI and Denies abdominal pain Genitourinary: Genitourinary: Reports as per HPI and Denies dysuria Musculoskeletal: Musculoskeletal: Reports as per HPI Neurologic: Reports as per HPI, Reports dizziness and Reports syncope [facility] Past Medical History Medical History (Updated 12/21/24 @ 08:05 by Trev Quiroz DO) Macular degeneration of left eye Gastric ulcer Urge urinary incontinence Carotid stenosis Coronary artery disease Hyperlipidemia CHF (congestive heart failure) Migraines Anxiety and depression COPD (chronic obstructive pulmonary disease) Essential hypertension Surgical History Surgical History H/O hysterectomy for benign disease Status post cataract extraction of both eyes with insertion of intraocular lens Status post right rotator cuff repair History of bowel resection Due to small-bowel obstruction History of carotid endarterectomy Family History Family History Father Acute myocardial infarction Hypertension Congestive heart failure Sibling Acute myocardial infarction Congestive heart failure Mother Stomach cancer Unknown Diabetes mellitus Social History Social History Years smoked: 30 Smoking status: Former smoker Tobacco type: cigarettes Second hand tobacco smoke exposure: Yes Alcohol intake: never Substance use: never Substance use type: marijuana Last use: couple weeks ago Lack of Transportation: No Lack of Food: Never True Current Housing: I Have Housing Concerned About Future Housing: No Difficulty Paying Gas/Electric Bills: YES Difficulty Paying for Meds: No Currently Unemployed: No Education: High School Diploma/GED Difficulty w/ Childcare or Family Care: No Gender identity (if verbalized by the patient): Female Spiritual care concerns: No Meds Home Medications and Allergies Home Medications ?Medication ?Instructions ?Recorded ?Confirmed ?Type amlodipine 5 mg tablet 5 mg PO DAILY 08/17/20 12/21/24 History atorvastatin 10 mg tablet 10 mg PO DAILY 08/17/20 12/21/24 History bupropion HCl 150 mg 24 hr tablet, 150 mg PO DAILY 08/17/20 12/21/24 History extended release carvedilol 6.25 mg tablet 6.25 mg PO BID 08/17/20 12/21/24 History clonidine HCl 0.2 mg tablet 0.2 mg PO HS 08/17/20 12/21/24 History lisinopril 40 mg tablet 40 mg PO DAILY 08/17/20 12/21/24 History oxybutynin chloride 5 mg 5 mg PO DAILY 08/17/20 12/21/24 History tablet,extended release 24 hr sertraline 100 mg tablet 100 mg PO BID 08/17/20 12/21/24 History donepezil 5 mg tablet 5 mg PO DAILY 12/21/24 12/21/24 History Allergies Allergy/AdvReac Type Severity Reaction Status Date / Time Sulfa (Sulfonamide AdvReac Unknown SEVERE N/V Verified 12/20/24 22:26 Antibiotics) Vital Signs Vital Signs - 24 hr 12/20/24 13:40 12/20/24 13:57 12/20/24 14:04 Temperature 98.4 F Pulse Rate 71 79 Respiratory Rate 18 15 Blood Pressure 158/92 H Pulse Oximetry 100 Oxygen Delivery Room Air 12/20/24 14:15 12/20/24 15:10 12/20/24 15:41 Temperature Pulse Rate 68 78 78 Respiratory Rate 15 19 23 H Blood Pressure Pulse Oximetry 100 98 Oxygen Delivery 12/20/24 15:52 12/20/24 16:36 12/20/24 16:46 Temperature Pulse Rate 77 69 76 Respiratory Rate 15 16 18 Blood Pressure Pulse Oximetry 96 100 100 Oxygen Delivery 12/20/24 17:00 12/20/24 17:15 12/20/24 17:34 Temperature Pulse Rate 73 81 81 Respiratory Rate 11 L 12 15 Blood Pressure Pulse Oximetry 98 100 100 Oxygen Delivery 12/20/24 17:45 12/20/24 18:09 12/20/24 18:15 Temperature Pulse Rate 81 83 75 Respiratory Rate 22 H 15 7 L Blood Pressure 188/89 H Pulse Oximetry 96 100 92 Oxygen Delivery 12/20/24 19:45 12/20/24 21:04 12/20/24 21:15 Temperature Pulse Rate 76 67 67 Respiratory Rate 20 20 Blood Pressure 184/86 H 184/86 H Pulse Oximetry 98 98 Oxygen Delivery 12/20/24 21:40 12/20/24 21:45 12/20/24 21:46 Temperature 98.5 F Pulse Rate 60 Respiratory Rate 16 Blood Pressure 127/68 141/76 H 127/68 Pulse Oximetry 98 Oxygen Delivery 12/20/24 21:51 12/21/24 00:00 12/21/24 00:00 Temperature 97.6 F Pulse Rate 62 54 L Respiratory Rate 16 Blood Pressure 141/77 H 150/78 H Pulse Oximetry 98 Oxygen Delivery 12/21/24 00:33 12/21/24 00:35 12/21/24 04:00 Temperature Pulse Rate 62 62 54 L Respiratory Rate Blood Pressure 113/60 Pulse Oximetry Oxygen Delivery 12/21/24 04:00 12/21/24 06:00 12/21/24 07:49 Temperature 97.8 F 97.6 F 97.1 F L Pulse Rate 56 L 54 L 55 L Respiratory Rate 16 16 16 Blood Pressure 150/75 H 150/78 H 155/70 H Pulse Oximetry 99 98 97 Oxygen Delivery Exam Const: General: cooperative, healthy appearing and comfortable Resp: Auscultation: clear to auscultation bilaterally, no crackles, no rales, no rhonchi and no wheezes Cardio: Rate: regular rate Rhythm: regular rhythm Heart sounds: no murmurs Peripheral pulses: dorsalis pedis present GI: GI Palp: No abdominal tenderness and Yes Soft to palpation Neuro: General: oriented to person, oriented to place and oriented to time Extrem: Right lower extremity: no edema Left lower extremity: no edema Results Labs and Meds 12/21/24 05:35 12/21/24 05:35 Lab results: Cardiac Enzymes 12/20/24 Range/Units 14:20 AST 41 H (14-36) U/L Troponin I 0.018 (0.000-0.034) ng/mL Lipids 12/21/24 Range/Units 05:35 Triglycerides 57 (<150) mg/dL Cholesterol 140 (0-200) mg/dL CBC 12/20/24 12/21/24 Range/Units 14:20 05:35 WBC 8.2 5.8 (4.5-10.0) K/mm3 RBC 4.05 L 3.60 L (4.2-5.4) M/mm3 Hgb 12.6 11.0 L (12.0-15.0) g/dL Hct 37.4 34.1 L (37.0-47.0) % Plt Count 278 251 (150-375) k/mm3 Lymph # (Auto) 1.50 (0.9-3.2) K/mm3 Mason # (Auto) 0.6 (0.1-0.6) K/mm3 Eos # (Auto) 0.1 (0-0.3) K/mm3 Baso # (Auto) 0.0 (0.0-0.1) K/mm3 Comprehensive Metabolic Panel 12/20/24 12/21/24 Range/Units 14:20 05:35 Sodium 134 L 131 L (137-145) mmol/L Potassium 3.7 3.6 (3.4-5.0) mmol/L Chloride 99 100 (98-107) mmol/L Carbon Dioxide 25 23 (22-30) mmol/L BUN 14 14 (7-17) mg/dL Creatinine 1.19 H 1.12 H (0.7-1.0) mg/dL Glucose 99 90 (65-110) mg/dL Calcium 9.8 9.1 (8.4-10.2) mg/dL AST 41 H (14-36) U/L ALT 18 (6-35) U/L Alkaline Phosphatase 110 (38-126) U/L Total Protein 7.7 (6.3-8.2) g/dL Albumin 4.4 (3.5-5.1) g/dL Intake and Output 12/20/24 12/21/24 12/21/24 23:59 07:59 15:59 Intake Total 500 218 Balance 500 218 Intake: IV 500 Sodium Chloride 0.9% IV 500 ml 500 @ 999 mls/hr IV CONT .Q31M STA Rx#:[id number] Oral 218 Other: # Unmeasured Voids 1
[2024-12-21 08:28] LABS: Creatine Kinase 136 U/L (30-135)
[2024-12-21] MEDS: ACETAMINOPHEN 500 MG TABLET 1000 MG PO (08:29)
[2024-12-21] MEDS: ATORVASTATIN 10 MG TABLET PO (08:31)
[2024-12-21] MEDS: ASPIRIN 81 MG ENTERIC TABLET PO (08:32)
[2024-12-21] MEDS: MECLIZINE HCL 25 MG TABLET PO (08:37)
[2024-12-21] MEDS: SERTRALINE HCL 50 MG TABLET 100 MG PO (21:43)
[2024-12-22 03:30] VITALS: PULSE 64
[2024-12-22 05:59] VITALS: BP 165/80; PULSE 64; RESP 18; TEMP 36.8; O2SAT 97
--- NOTE | 2024-12-22 07:53 | P.PNCA_ITS ---
Progress Note: A&P Assessment and Plan (1) Syncope: Qualifiers: Syncope type: unspecified Qualified Code(s): R55 - Syncope and collapse Code(s): R55 - Syncope and collapse Status: Acute Assessment and Plan: Unclear etiology. Differential includes, orthostatic syncope, cardiac pauses, vertigo, neurologic. 12/21/24 Echo: EF 50-55%, grade I diastolic dysfunction. Upon discharge she will need to wear 30 day event monitor. F/U with me in 2 weeks. (2) HTN (hypertension), benign: Code(s): I10 - Essential (primary) hypertension Status: Chronic Assessment and Plan: High. Increase Amlodipine 10 mg daily. (3) Hyperlipidemia: Code(s): E78.5 - Hyperlipidemia, unspecified Status: Acute Assessment and Plan: On Atorvastatin. Subjective Date/time seen: 12/22/24 07:53 Interval history: Denies dizziness while in hospital. No chest pain or sob. Exam Const: General: cooperative, healthy appearing and comfortable Orientation/consciousness: oriented to person, oriented to place and oriented to time Resp: Auscultation: clear to auscultation bilaterally, no crackles, no rales, no rhonchi and no wheezes Cardio: Rate: regular rate Rhythm: regular rhythm Heart sounds: no murmurs Peripheral pulses: dorsalis pedis present Neuro: General: oriented to person, oriented to place and oriented to time Extrem: Right lower extremity: no edema Left lower extremity: no edema Objective Data Vital Signs Vital Signs: Vital Signs - 24 hr 12/21/24 08:00 12/21/24 08:32 12/21/24 10:13 Temperature Pulse Rate 57 L 59 L Respiratory Rate Blood Pressure Pulse Oximetry Oxygen Delivery Room Air 12/21/24 12:00 12/21/24 12:00 12/21/24 13:25 Temperature 96.6 F L Pulse Rate 58 L 61 Respiratory Rate 16 Blood Pressure 155/77 H 157/72 H Pulse Oximetry 99 Oxygen Delivery 12/21/24 14:52 12/21/24 14:52 12/21/24 15:58 Temperature 97.5 F L Pulse Rate 55 L Respiratory Rate 16 Blood Pressure 150/79 H 133/84 162/75 H Pulse Oximetry 99 Oxygen Delivery 12/21/24 16:00 12/21/24 20:00 12/21/24 20:00 Temperature Pulse Rate 58 L 57 L 57 L Respiratory Rate 16 Blood Pressure Pulse Oximetry 100 Oxygen Delivery Room Air 12/21/24 22:00 12/21/24 23:08 12/22/24 03:30 Temperature 97.6 F Pulse Rate 57 L 52 L 64 Respiratory Rate 16 Blood Pressure 178/78 H Pulse Oximetry 100 Oxygen Delivery 12/22/24 05:59 Temperature 98.2 F Pulse Rate 64 Respiratory Rate 18 Blood Pressure 165/80 H Pulse Oximetry 97 Oxygen Delivery Intake/Output Intake/Output: Intake & Output 12/19/24 12/20/24 12/21/24 12/22/24 23:59 23:59 23:59 23:59 Intake Total 500 1678 100 Balance 500 1678 100 Meds/Results Medications: Active Medications Generic Name Dose Route Start Last Admin Trade Name Freq PRN Reason Stop Dose Admin Acetaminophen 1,000 mg 12/21/24 00:25 12/21/24 08:29 Acetaminophen 500 Mg Tablet PO 1,000 mg Q6H PRN Administration Mild Pain (1-3) or Fever Amlodipine Besylate 10 mg 12/22/24 09:00 Amlodipine Besylate 10 Mg Tablet PO DAILY [facility] Aspirin 81 mg 12/21/24 09:00 12/21/24 08:32 Aspirin 81 Mg Enteric Tablet PO 81 mg QAM MINA Administration Atorvastatin Calcium 10 mg 12/21/24 09:00 12/21/24 08:31 Atorvastatin 10 Mg Tablet PO 10 mg DAILY [facility]A Administration Bupropion HCl 150 mg 12/22/24 09:00 Bupropion Hcl Xl (24 Hr) 150 Mg Tabcr PO DAILY [facility] Donepezil HCl 5 mg 12/22/24 09:00 Donepezil Hcl 5 Mg Tablet PO DAILY [facility] Enoxaparin Sodium 30 mg 12/22/24 09:00 Enoxaparin 30 Mg/0.3 Ml Syringe SUB-Q DAILY [facility] Lisinopril 40 mg 12/22/24 09:00 Lisinopril 20 Mg Tablet PO DAILY [facility] Meclizine HCl 25 mg 12/20/24 22:32 12/21/24 08:37 Meclizine Hcl 25 Mg Tablet PO 25 mg TID PRN Administration Vertigo Ondansetron HCl 4 mg 12/20/24 22:32 Ondansetron Inj 4 Mg/2 Ml Vial IV PUSH Q6H PRN Nausea And Vomiting Oxybutynin Chloride 5 mg 12/22/24 09:00 Oxybutynin Chloride Xl 5 Mg Tab.Er.24 PO DAILY [facility] Perflutren Lipid Microsphere 0 ml 12/20/24 22:39 Perflutren Lipid Microspheres 1.5 Ml Vial Diluted To 10 Ml Total Volume IV PUSH 12/23/24 22:40 ONCE PRN adequate visualization Protocol Sertraline HCl 100 mg 12/21/24 21:00 12/21/24 21:43 Sertraline Hcl 50 Mg Tablet PO 100 mg Q12HR MINA Administration Radiology Results: ITS Impressions Chest X-Ray 12/20/24 14:47 Impression: No acute cardiopulmonary abnormality. Head CT 12/20/24 14:47 Impression: 1.No acute intracranial abnormality. Cervical Spine CT 12/20/24 14:49 Impression: No acute abnormality. Head/Neck CTA 12/20/24 15:08 IMPRESSION: 1. Motion artifact limits evaluation. No critical stenosis, occlusion or aneurysm is identified. Labs Labs: Laboratory Results - last 24 hr 12/21/24 05:35 Total Creatine Kinase 136 H
[2024-12-22 08:00] VITALS: PULSE 59
[2024-12-22] MEDS: ACETAMINOPHEN 500 MG TABLET 1000 MG PO (09:25)
[2024-12-22] MEDS: MECLIZINE HCL 25 MG TABLET PO (09:25)
[2024-12-22] MEDS: SERTRALINE HCL 50 MG TABLET 100 MG PO (09:31)
[2024-12-22] MEDS: ASPIRIN 81 MG ENTERIC TABLET PO (09:31)
[2024-12-22] MEDS: ATORVASTATIN 10 MG TABLET PO (09:32)
[2024-12-22] MEDS: DONEPEZIL HCL 5 MG TABLET PO (09:32)
[2024-12-22] MEDS: oxyBUTYnin CHLORIDE XL 5 MG TAB.ER.24 PO (09:32)
[2024-12-22] MEDS: buPROPion HCL XL (24 HR) 150 MG TABCR PO (09:32)
[2024-12-22] MEDS: ENOXAPARIN 30 MG/0.3 ML SYRINGE SUB-Q (09:33)
[2024-12-22 11:32] VITALS: BP 148/78; PULSE 60
[2024-12-22 12:00] VITALS: PULSE 64
[2024-12-22 12:26] LABS: Anion Gap 6 mmol/L (4-12); Blood Urea Nitrogen 16 mg/dL (7-17); Calcium 9.3 mg/dL (8.4-10.2); Carbon Dioxide 28 mmol/L (22-30); Chloride 97 mmol/L (98-107); Estimated CRCL calculation 30 ml/min; Estimated Glomerular Filt Rate 56; Glucose 79 mg/dL (65-110); Potassium 3.8 mmol/L (3.4-5.0); Sodium 131 mmol/L (137-145)
--- NOTE | 2024-12-22 13:45 | PM.DS ---
DS: Admitting Diagnosis Discharge Date 12/22/24 Admitting Diagnosis - dizziness -syncope DS: Discharge Diagnosis Discharge Diagnosis (1) Syncope: Qualifiers: Syncope type: unspecified Qualified Code(s): R55 - Syncope and collapse Code(s): R55 - Syncope and collapse Status: Acute (2) Dizziness: Code(s): R42 - Dizziness and giddiness Status: Acute (3) HTN (hypertension), benign: Code(s): I10 - Essential (primary) hypertension Status: Chronic DS: Summary Hospital Course Hospital Course: 79-year-old female with a past medical history of anxiety and depression, carotid stenosis, CHF, COPD, CAD, HTN, hyperlipidemia, gastric ulcer, cerebellar CVA in 2020, migraines presents to the emergency department on 12/20/2024 with complaints of dizziness and syncope. Lab significant for a creatinine 1.19, AST 41. UA without signs of infection. Troponin negative. Chest x-ray with no acute cardiopulmonary abnormality. Head CT shows an old left occipital infarct and no acute intracranial abnormalities. Cervical spine CT with no acute abnormality. Head neck CTA with motion artifact but no critical stenosis, occlusions or aneurysms identified. EKG with sinus rhythm and left bundle branch block Of note, neurology in August of 2020 mentions the possibility of vertebral steal syndrome during the workup for her left cerebellar CVA due to left subclavian artery moderate stenosis between the origin and the vertebral on the left side. Report was sent to neurosurgical services at [facility] for further workup and management. Unclear if patient never followed up. Records requested. Spoke with Dr. Tompkins neurology fellow at [facility] to inquire about transfer for higher level neurological care. At this time, he does not feel she has an acute need for transfer as her imaging here has been without acute processes. Patient was placed in observation for further evaluation in management. Patient reports syncopal episode on 12/19 which resulted in her striking her head. States these episodes have been happening for the past several months but she does not seek medical evaluation. Orthostatics negative in ED. MRI brain with old infarcts in the bilateral basal ganglia and left cerebellum (known to patient), chronic small vessel ischemic disease. Echo showed a 50%, G1 DD, suspected small PFO. Patient's symptoms improved with IV fluids. Cardio consulted who titrated home BP medication due to elevated BP trend and placed a 30-day event monitor. Recommended outpatient follow-up in 2 weeks. PT/OT recommended HHC, but patient declined. Will plan for outpatient vestibular therapy. Patient had walker ordered on discharge. Patient ambulated without significant dizziness on discharge. She was encouraged to follow-up with her PCP regarding her weight loss. Patient discharged home with family support in stable condition. Status at Discharge Functional status at discharge: uses cane/walker Overall status at discharge: patient is back to baseline Time Spent with Patient Time attestation: Total time spent providing and/or coordinating discharge services: Time spent: Greater than 30 minutes Exam Narrative: General: NAD Eyes: EOMI ENT: neck supple Cardiovascular: Regular rate and rhythm Respiratory: Clear to auscultation, respirations even and unlabored on RA Gastrointestinal: Soft, non tender Genitourinary: no suprapubic tenderness Musculoskeletal: No edema Skin: warm, dry Neuro: Alert and oriented x4. Cranial nerves II-XII intact. Face symmetric. Speech clear. Psych: Mood appropriate DS: Data Data Completed and Pending Completed studies during hospitalization: ITS Impressions Chest X-Ray 12/20/24 14:47 Impression: No acute cardiopulmonary abnormality. Head CT 12/20/24 14:47 Impression: 1.No acute intracranial abnormality. Cervical Spine CT 12/20/24 14:49 Impression: No acute abnormality. Head/Neck CTA 12/20/24 15:08 IMPRESSION: 1. Motion artifact limits evaluation. No critical stenosis, occlusion or aneurysm is identified. Brain MRI 12/22/24 09:12 IMPRESSION: 1. 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 2. Extensive nonspecific cerebral white matter disease, which likely represents chronic small vessel ischemic disease. Labs on day of discharge: Labs from last 24 hours 12/22/24 11:52 Sodium 131 L Potassium 3.8 Chloride 97 L Carbon Dioxide 28 Anion Gap 6 BUN 16 Creatinine 0.96 Estim Creat Clear Calc 30 Estimated GFR 56 L Glucose 79 Calcium 9.3 Discharge Plan Discharge Attending physician on discharge: Jeremy Cooper Consulting providers: Leeanna Yanez; Trev Quiroz; Jason Amaya Discharging Clinician: Leeanna Yanez Anticipated Discharge Date/Time: 12/22/24 11:14 Patient Disposition: Home Activity: as tolerated Diet: as tolerated Discharge Instructions: Take all medications as prescribed. Please note your amlodipine dose has been increased due to high blood pressure. Make sure you are drinking plenty of water. Change positions slowly when moving from sitting to standing. Use meclizine as needed for dizziness. This medication may cause drowsiness. Follow-up with Dr. Quiroz in 2 weeks. Follow-up with your primary care provider in one week. Return to the emergency department if you develop chest pain, shortness of breath, persistent fever >100.4, confusion, loss of consciousness. Patient Instructions: Meclizine (By mouth) Patient Language: Bruneian Stand Alone Forms: General Discharge Information Follow-up/Referrals: Elizabeth Carson APRN [Primary Care Provider, Family Practice] - Call for Appointment Referral Note: follow-up in 5-7 days Trev Quiroz DO [Physician, Cardiology] - Call for Appointment Referral Note: follow-up in 2 weeks Discharge Medications: New aspirin 81 mg Tablet,Delayed Release (Dr/Ec) 81 mg PO QAM Qty: 30 0RF meclizine 25 mg Tablet 12.5 mg PO TID PRN (Reason: Vertigo) 10 Days Qty: 10 0RF Continued sertraline 100 mg tablet 100 mg PO BID lisinopril 40 mg tablet 40 mg PO DAILY bupropion HCl 150 mg tablet extended release 24 hr 150 mg PO DAILY atorvastatin 10 mg tablet 10 mg PO DAILY oxybutynin chloride 5 mg tablet extended release 24hr 5 mg PO DAILY donepezil 5 mg tablet 5 mg PO DAILY Changed amlodipine 5 mg tablet 10 mg PO DAILY 30 Days Qty: 60 0RF Discontinued carvedilol 6.25 mg tablet 6.25 mg PO BID Patient Comments: may need additional verification clonidine HCl 0.2 mg tablet 0.2 mg PO HS Patient Comments: unknow reason. Pt states does not take it may need additional verification Other Ambulatory Orders: PT Outpatient Eval and Treat (ONCE) Timeframe: [id number] Location: Determined by Patient Ordered By: Leeanna Yanez Date of admission: 12/21/24 11:38 Primary Care Provider: Elizabeth Carson Admitting Provider: Ross Thomas Attending physician on admission: Ross Thomas Condition: Stable
[2024-12-22 13:59] VITALS: BP 114/58; PULSE 58; RESP 15; TEMP 36.4; O2SAT 97
== END 2024-12-22 14:50 | disposition home or self-care (01) | DRG 312 ==
LOC: ANHED 14:19 → ANH3MEDSUR 18:19
PROVIDERS: Emergency Medicine; Nurse Practitioner Adult Health; Admitting Provider Internal Medicine; Emergency Provider Physician Assistant; PCP Nurse Practitioner Family; Visit Provider Physician Assistant
DX: R55 Syncope and collapse (principal); I11.0 Hypertensive heart disease with heart failure; I50.9 Heart failure, unspecified; J44.9 Chronic obstructive pulmonary disease, unspecified; E78.5 Hyperlipidemia, unspecified; I25.10 Atherosclerotic heart disease of native coronary artery without angina pectoris; I65.29 Occlusion and stenosis of unspecified carotid artery; H35.30 Unspecified macular degeneration; R32 Unspecified urinary incontinence; F41.8 Other specified anxiety disorders; Z86.73 Personal history of transient ischemic attack (TIA), and cerebral infarction without residual deficits; Z87.891 Personal history of nicotine dependence
CPT/HCPCS: 36415; 70450; 70496; 70498; 70553; 71046; 72125; 80048; 80053; 80061; 81003; 82550; 84484; 85025; 85027; 93005; 93306; 96361; 96374; 96375; 97161; 97166; 99285; A9270; A9577; G0378; J1650; J2405; J7040; Q9967